=== PATIENT | male | born 1955 | race Caucasian/White ===

== ENCOUNTER 2023-01-12 10:03 | Outpatient (CLI) | payer MEDICARE, SELFPAY ==
--- NOTE | ~2023-01-12 | US_ITS ---
EXAMINATION: US venous doppler [facility] DATE: 01/12/2023 10:38 INDICATION: Left lower limb swelling. TECHNIQUE: Grayscale ultrasound images without and with compression and Doppler ultrasound images of the left lower extremity veins were obtained. COMPARISON: None. FINDINGS: The visualized portions of left common femoral vein, profunda (deep) femoral vein, femoral vein, popl iteal vein, peroneal veins, posterior tibial veins, and greater saphenous vein outflow are patent. IMPRESSION: 1. No deep venous thrombosis. Reviewed, dictated and finalized at location A.
== END 2023-01-12 10:04 | disposition home or self-care (01) ==
PROVIDERS: PCP Nurse Practitioner; Visit Provider Nurse Practitioner
DX: R22.42 Localized swelling, mass and lump, left lower limb (principal)
CPT/HCPCS: 93971

== ENCOUNTER 2025-02-05 01:31 | Day surgery (SDC) | payer MEDICARE, SELFPAY ==
--- OUTSIDE RECORDS SUMMARY | 2020-04-30 12:47 | XMS_ITS | Continuity of Care Document ---
Author Organization [facility] Address [address] [place] [address] Phone Care Team Providers Care Surgical Assist Name Role Phone Misty Evans MD Unavailable Unavailable Allergies, Adverse Reactions, Alerts Substance Reaction Status Criticality No Known Allergies Active No Inform ation Medications Medication Instructions Dosage Effective Dates (start - stop) Status Comments clindamycin HCl 300 mg capsule take 1 capsule by oral route every 8 hours 300 MG - Active JANUVIA (unknown strength) Not Available - Active Procedures Procedure Date OFFICE/OUTPATIENT VISIT, EST CELESTONE (BETAMETHASONE) INJECT/ ASP INTERMED JOINT/B URSA: AC, WRIST,ELBOW,ANKLE W/OUT ULTRASOUND GUIDE OFFICE/OUTPATIENT VISIT, NEW Advance Directives Directive Yes / No Effective Date File Name No Information Encounters Encounter Description Practice Location Reason(s) For Visit Diagnoses Date Provider Providers Copied on Encounter [facility], [address] [place] [address], [address], [place] tel:[phone] [facility] No Information Nathan Jay. [address], [place], [id number], [place]. tel:[phone] OFFICE/OUTPAT IENT VISIT, EST [facility], [address] [place], [address], [place] tel:[phone] [facility] right elbow pain (chief complaint) Olecranon bursitis, right elbow Cristobal Merino. [address], [place], [id number], [place]. tel:[phone] Referring Provider: Esther Percy [facility] [address], [place], [address]. tel:[phone] OFFICE/OUTPAT IENT VISIT, [facility], [address] [place], [address], [place] tel:[phone] [facility] right elbow pain (chief complaint) Abscess of right olecranon bursa Canton Wilber. [address], [place], [id number], [place]. tel:[phone] Referring Provider: Esther [facility] [address], [place], [address]. tel:[phone] Family History Family Member Type Diagnosis Age At Onset No Information Payers Payer name Insurance type Covered libertarian ID Authormarka radha(s) R [facility] CI [id number] Social History Type Description Quantity Date Captured Comments Alcohol Use Details Unknown Caffeine Use Details Unknown Tobacco Use Status No Information Smoking Status No Information Sex Male Chief Complaint And Reason For Visit No Information Reason For Referral Reason For Referral No Information History Of Present Illness Encounter Date Complaint History Of Prese nt Illness right elbow pain Josr Butler is a 64 year old male. He presents with pain on the right side. The problem is improving. He rates his current pain as 0/10. right elbow pain Josr Butler is a 64 year old male. He presents with pain on the right side. He states that the symptoms have been acute non-traumatic and began 1 week ago. The symptoms occur constantly. He rates his current pain as 6/10. The symptoms are aggravated by daily activities. In addition to right elbow pain the patient is also experiencing nocturnal pain and swelling. Functional Status Date Functional Assessmen t No Information Instructions Date Instruction Additional Infor mation No Information Assessments Type Assessment Date No Information Patient Care Teams Name Effective Dates (start - stop) Status Members No Information
[2025-02-01 12:54] VITALS: BMI 33.7
--- OUTSIDE RECORDS SUMMARY | 2025-02-05 01:35 | XMS_ITS | Encounter Summary ---
Author Organization [facility] Address [address] [place] [address] Care Team Providers Care Movable Bulkhead Installer Name Role Phone Unavailable Primary Care Provider Unavailabl e Encounter Details Date Type Department Care Team (Late st Contact Info) Description 11/13/2022 Lab Requisition [facility] - DermPath Lab [address] [place] [id number] Luisa Sotelo PA-C [address] [place] [phone] Dermatitis, unspecified Social History Tobacco Use Types Packs/Day Years Used Date Smoking Tobacco: Never Assessed Sex and Gender Information Value Date Recorded Sex Assigned at Not on file Legal Sex Male 4:15 PM CDT Gender Identity Not on file Sexual Orientation Not on file documented as of this encounter Plan of Treatment Not on file documented as of this encounter Procedures Procedure Name Priority Date/Time Associated Diagnosis Comments DERMATOPATHOLOGY Routine 11/13/2022 12:0 0 AM CDT Dermatitis, unspecified [ICD-10-CM] documented in this encounter Results * DERMATOPATHOLOGY (11/13/2022 12:00 AM CDT) Case Report Dermatopathology Report Case: [id number] Authorizing Provider: Luisa Soetlo, Collected: 11/13/2022 12:00 AM TAYLOR Ordering Location: [facility] DermPath Lab Received: 11/17/2022 12:33 PM Pathologist: Ludmila Lovelace MD Specimen: Skin, right forearm 10:15 AM CDT DERMATOPATHOLOGY LABORATORY Final Diagnosis Specimen A. SKIN, right forearm: BENIGN VERRUCOUS KERATOSIS (L82.1) 10:15 AM CDT DERMATOPATHOLOGY LABORATORY at 1015 CDT Clinical History Prurigo Nodularis vs. SKs 10:15 AM T DERMATOPATHOLOGY LABORATORY Gross Description Specimen A: Received is one formalin filled container labeled with the patient's name and designated right forearm. The specimen consists of a shave biopsy measuring 39w11l4 mm. Jar 0. 10:15 AM T DERMATOPATHOLOGY LABORATORY Microscopic Description Specimen A. SKIN, right forearm: Sections show hyperkeratosis, papillomatosis, hypergranulosis, and acanthosis. These histological findings can be seen in a verruca vulgaris or a seborrheic keratosis. 3 10:15 AM T DERMATOPATHOLOGY LABORATORY Disclaimer An external and internal positive and negative controls are appropriate for the histochemical, immunohistochemical and immunofluorescence stain(s) in this case (if any), except where stated explicitly. The performance characteristics of the stain(s) cited in this report were developed and its performance characteristic determined by the Dermatopathology Laboratory at [facility], directed by Dr. Maurizio Paredes. These tests need not be, and therefore are not, approved by the [place] Food and Drug Administration. The tests are used for clinical purposes. Billing Codes Specimen Charges Stain Charges 12627 1 3 10:15 AM CDT DERMATOPATHOLOGY LABORATORY Embedded Images 10:15 AM T DERMATOPATHOLOGY LABORATORY Pathology/Cytolog y TISSUE SPECIMEN FROM SKIN / Unknown 11/13/2022 11/17/2022 12:33 PM CDT us Luisa Sotelo PA-C LAB - PATHOLOGY/CYTO LOGY ORDERABLES Final Result DERMATOPATHOLOGY LABORATORY [facility] - Department of Dermatology [address], [address] [phone] documented in this encounter Visit Diagnoses Diagnosis Dermatitis, unspecified documented in this encounter
--- OUTSIDE RECORDS SUMMARY | 2025-02-05 01:35 | XMS_ITS | Encounter Summary ---
Author Organization [facility] Address [facility] [place] [address] Care Team Providers Care Stripper And Printer Name Role Phone Kamilla Burch NP Primary Care Provider [phone] Ena Royal RN Unavailable [phone] Encounter Details Date Type Department Care Team (Late st Contact Info) Description 09/02/2022 TextHub Message Enc [facility] - [facility] [address] [place] [address] [facility] Provider Colorectal Cancer Screening and Diabetic Eye Exam Social History Tobacco Use Types Packs/Day Years Used Date Smoking Tobacco: Some Days Cigars Passive Smoke Exposure: Never Smokeless Tobacco: Never Alcohol Use Standard Drinks/Week Comments Yes 0 (1 standard drink = 0.6 oz pur e alcohol) socially Humiliation, Afraid, Rape, and Kick questionnair e Answer Date Recorded Within the last year, have y ou been afraid of your partner or ex-partner? No 08/31/2022 Within the last year, have y ou been humiliated or emotionally abused in other ways by your partner or ex-partner? No Within the last year, have y ou been kicked, hit, slapped, or otherwise physically hurt by your partner or ex-partner? No 08/31/2022 Within the last year, have y ou been raped or forced to have any kind of sexual activity by your partner or ex-partner? No 08/31/2022 Overall Financial Resource Strain (CARDIA) Answe r Date Recorded How hard is it for you to pa y for the very basics like food, housing, medical care, and heating? Not hard at all 08/31/2022 PHQ-2 Answer Date Recorded Patient Health Questionnaire-2 Score 0 08/19/2022 Hunger Vital Sign Answer Date Recorded Within the past 12 months, y ou worried that your food would run out before you got the money to buy more. Never true 09/01/19 23 Within the past 12 months, t he food you bought just didn't last and you didn't have money to get more. Never true 08/31/2022 PRAPARE - Transportation Answer Date Re corded In the past 12 months, has l ack of transportation kept you from medical appointments or from getting medications? No 08/09 In the past 12 months, has l ack of transportation kept you from meetings, work, or from getting things needed for daily living? No 08/31/2022 Housing Stability Vital Sign Answer Mike e Recorded In the last 12 months, was t here a time when you were not able to pay the mortgage or rent on time? No 08/31/2022 In the last 12 months, how many places have you lived? 2 08/31/2022 In the last 12 months, was t here a time when you did not have a steady place to sleep or slept in a fci (including now)? No 08/31/2022 Sex and Gender Information Value Date Recorded Sex Assigned at Male 10/09/2022 10:17 AM CDT Legal Sex Male 1:32 PM CDT Gender Identity Not on file Sexual Orientation Not on file COVID-19 Exposure Response Date Recorded In the last 10 days, have yo u been in contact with someone who was confirmed or suspected to have Coronavirus/COVID-19? No / Unsure 08/31/2022 5:09 AM CDT documented as of this encounter Functional Status * Are you deaf or do you have serious difficulty hearing Answer Date of Assessment Author Status No 08/31/2022 5:14 PM CDT Luisa Ramachandran RN Active * Are you blind or do you have serious difficulty seeing, even when wearing glasses? Answer Date of Assessment Author Status No 08/31/2022 5:14 PM ANGELEST Luisa Ramachandran RN Active * Do you have serious difficulty walking or climbing stairs? Answer Date of Assessment Author Status No 08/31/2022 5:14 PM ANGELEST Luisa Ramachandran RN Active * Do you have difficulty dressing or bathing? Answer Date of Assessment Author Status No 08/31/2022 5:14 PM CDT Luisa Ramachandran RN Active * Because of a physical, mental, or emotional condition, do you have difficulty doing errands alone such as visiting a doctor's office or shopping? Answer Date of Assessment Author Status No 08/31/2022 5:14 PM ANGELEST Luisa Ramachandran RN Active documented as of this encounter Mental Status * Because of a physical, mental, or emotional condition, do you have serious difficulty concentrating, remembering, or making decisions? Answer Entry Date Author Status No 08/31/2022 5:14 PM ANGELEST Luisa Ramachandran RN Active documented in this encounter Plan of Treatment Upcoming Encounters Date Type Department Care Team (Late st Contact Info) Description 04/13/2025 9:20 AM INVESTIGATOR NARCOTICS Office Visit [facility] Family Medicine - [place] [address] [facility] [address] [place] [address] Kamilla Burch NP [address] [place] [address] 04/20/2025 9:30 AM INVESTIGATOR NARCOTICS Office Visit [facility], [address] [place], [place] [address] Braden Mccauley MD Three [facility]. [address] [place] [address] 10/10/2025 9:00 AM CDT Appointment [facility] [address] [facility] [place] [address] Ghanshyam Rodriguez MD Three [facility]. [address] [place], [place] [address] 10/17/2025 10:15 AM CDT Appointment [place] [address] [address] Ghanshyam Rodriguez MD Three [facility]. [address] [place], [place] [address] 10/25/2025 1:00 PM CDT Office [facility] [address] [place], [place] [address] Ghanshyam Rodriguez MD Three [facility]. [address] [place], [place] [address] documented as of this encounter Goals Goal Patient Goal Type Associated Problems Recent Progress Patient-Stated? Author Patient will return to prior living situation and remain independent in ADLs upon discharge from hospital Lifestyle On track( 023 11:22 AM CDT) No Jazmyne Albarran, RN Establish Plan for Symptom Monitoring Lifestyle On track( 023 11:22 AM CDT) No Ena Royal, RN Note: 08/21/22: Moving forward, please see body of note for patient status and progress towards the goal. documented as of this encounter Visit Diagnoses Not on filedocumented in this encounter Additional Health Concerns Infection Onset Date Last Indicated Resolved Time COVID-19 Rule Out 02/12/2023 02/12/2023 02/12/2023 8:08 AM CDT COVID-19 Rule Out 04/26/2024 04/26/2024 04/26/2024 9:15 AM INVESTIGATOR NARCOTICS documented as of this encounter Care Teams Stripper And Printer Relationship Specialty Start Date End Date Kamilla Burch NP [address] [place] [address] PCP - General NURSE PRACTITIONER 12/06/19 Ena Royal, RN [address] [place] [address] Dry Cleaner (Ambulatory) REGISTERED NURSE 08/20/22 documented as of this encounter
--- OUTSIDE RECORDS SUMMARY | 2025-02-05 01:35 | XMS_ITS | Encounter Summary ---
Author Organization [facility] Address [facility] [place] [address] Care Team Providers Care Manager Event Name Role Phone Kamilla Burch NP Primary Care Provider [phone] Ena Royal RN Unavailable [phone] Encounter Details Date Type Department Care Team (Late st Contact Info) Description 08/24/2022 Easy Social Shopt Message Enc [facility] Medical Group Family Medicine [facility] [address] [facility] [address] [place], [place] [id number] Kamilla Burch NP [address] [place] [address] Open Heart surgery Wednesday the Social History Tobacco Use Types Packs/Day Years Used Date Smoking Tobacco: Some Days Cigars Passive Smoke Exposure: Never Smokeless Tobacco: Never Alcohol Use Standard Drinks/Week Comments Yes 0 (1 standard drink = 0.6 oz pur e alcohol) socially Humiliation, Afraid, Rape, and Kick questionnair e Answer Date Recorded Within the last year, have y ou been afraid of your partner or ex-partner? No 08/19/2022 Within the last year, have y ou been humiliated or emotionally abused in other ways by your partner or ex-partner? No Within the last year, have y ou been kicked, hit, slapped, or otherwise physically hurt by your partner or ex-partner? No 08/19/2022 Within the last year, have y ou been raped or forced to have any kind of sexual activity by your partner or ex-partner? No 08/19/2022 Overall Financial Resource Strain (CARDIA) Answe r Date Recorded How hard is it for you to pa y for the very basics like food, housing, medical care, and heating? Not hard at all 08/19/2022 PHQ-2 Answer Date Recorded Patient Health Questionnaire-2 Score 0 08/19/2022 Hunger Vital Sign Answer Date Recorded Within the past 12 months, y ou worried that your food would run out before you got the money to buy more. Never true 08/20/19 23 Within the past 12 months, t he food you bought just didn't last and you didn't have money to get more. Never true 08/19/2022 PRAPARE - Transportation Answer Date Re corded In the past 12 months, has l ack of transportation kept you from medical appointments or from getting medications? No 08/08 In the past 12 months, has l ack of transportation kept you from meetings, work, or from getting things needed for daily living? No 08/19/2022 Housing Stability Vital Sign Answer Mike e Recorded In the last 12 months, was t here a time when you were not able to pay the mortgage or rent on time? No 08/19/2022 In the last 12 months, how many places have you lived? 2 08/19/2022 In the last 12 months, was t here a time when you did not have a steady place to sleep or slept in a senior care (including now)? No 08/19/2022 Sex and Gender Information Value Date Recorded Sex Assigned at Male 10/09/2022 10:17 AM CDT Legal Sex Male 1:32 PM CDT Gender Identity Not on file Sexual Orientation Not on file COVID-19 Exposure Response Date Recorded In the last 10 days, have yo u been in contact with someone who was confirmed or suspected to have Coronavirus/COVID-19? No / Unsure 08/19/2022 8:49 AM CDT documented as of this encounter Functional Status * Are you deaf or do you have serious difficulty hearing Answer Date of Assessment Author Status No 08/19/2022 5:58 PM CDT Sadaf Mclean R N Active * Are you blind or do you have serious difficulty seeing, even when wearing glasses? Answer Date of Assessment Author Status No 08/19/2022 5:58 PM CDT Sadaf Mclean R N Active * Do you have serious difficulty walking or climbing stairs? Answer Date of Assessment Author Status No 08/19/2022 5:58 PM CDT Sadaf Mclean R N Active * Do you have difficulty dressing or bathing? Answer Date of Assessment Author Status No 08/19/2022 5:58 PM CDT Sadaf Mclean R N Active * Because of a physical, mental, or emotional condition, do you have difficulty doing errands alone such as visiting a doctor's office or shopping? Answer Date of Assessment Author Status No 08/19/2022 5:58 PM CDT Sadaf Mclean R N Active documented as of this encounter Mental Status * Because of a physical, mental, or emotional condition, do you have serious difficulty concentrating, remembering, or making decisions? Answer Entry Date Author Status No 08/19/2022 5:58 PM CDT Sadaf Mclean R N Active documented in this encounter Plan of Treatment Upcoming Encounters Date Type Department Care Team (Late st Contact Info) Description 04/13/2025 9:20 AM APPLIER Office Visit [facility] Medical Group Family Medicine - [place] [address] [facility] [address] [place] [address] Kamilla Burch NP [address] [place] [address] 04/20/2025 9:30 AM APPLIER Office Visit [facility] [place], [place] [id number] Braden Mccauley MD [facility]. [address] [place], [place] [id number] 10/10/2025 9:00 AM CDT Appointment [place] [address] [facility] [place] [address] Ghanshyam Rodriguez MD [facility] [address] [place], [place] [address] 10/17/2025 10:15 AM CDT Appointment [place] [address] [facility] [place] [address] Ghanshyam Rodriguez MD [facility] [address] [place] [address] 10/25/2025 1:00 PM CDT Office Visit [facility] [address] [facility] [address], [address] [place], [place] [address] Ghanshyam Rodriguez MD Three [facility]. [address] [place] [address] documented as of this encounter Goals Goal Patient Goal Type Associated Problems Recent Progress Patient-Stated? Author Patient will return to prior living situation and remain independent in ADLs upon discharge from hospital Lifestyle On track( 023 11:22 AM CDT) No Jazmyne Albarran, RN Establish Plan for Symptom Monitoring Lifestyle On track( 023 11:22 AM CDT) No Ena Royal RN Note: 08/21/22: Moving forward, please see body of note for patient status and progress towards the goal. documented as of this encounter Visit Diagnoses Not on filedocumented in this encounter Additional Health Concerns Infection Onset Date Last Indicated Resolved Time COVID-19 Rule Out 02/12/2023 02/12/2023 02/12/2023 8:08 AM CDT COVID-19 Rule Out 04/26/2024 04/26/2024 04/26/2024 9:15 AM APPLIER documented as of this encounter Care Teams Manager Event Relationship Specialty Start Date End Date Kamilla Burch NP [address] [place] [address] PCP - General NURSE PRACTITIONER 12/06/19 Ena Royal, RN [address] [place], [place] [address] Rn Wound (Ambulatory) REGISTERED NURSE 08/20/22 documented as of this encounter
--- OUTSIDE RECORDS SUMMARY | 2025-02-05 01:35 | XMS_ITS | Encounter Summary ---
Author Organization [facility] Address [facility] [place] [address] Care Team Providers Care Trimming Assembler Name Role Phone Kamilla Burch NP Primary Care Provider [phone] Ena Royal RN Unavailable [phone] Encounter Details Date Type Department Care Team (Late st Contact Info) Description 04/08/2022 Larger Than Life Prints Message Enc [facility] Medical [facility] Family Medicine [facility] [address] [facility] [place], [place] [id number] Kamilla Burch NP [address] [place] [address] follow up on blood sugars Social History Tobacco Use Types Packs/Day Years Used Date Smoking Tobacco: Never Passive Smoke Exposure: Never Smokeless Tobacco: Never Alcohol Use Standard Drinks/Week Comments Yes 0 (1 standard drink = 0.6 oz pur e alcohol) socially PHQ-2 Answer Date Recorded PHQ-2 Score - If the patient scores above 3, please move on to questions 3-9 0 03/19/2022 Sex and Gender Information Value Date Recorded Sex Assigned at Male 10/09/2022 10:17 AM CDT Legal Sex Male 1:32 PM CDT Gender Identity Not on file Sexual Orientation Not on file COVID-19 Exposure Response Date Recorded In the last 10 days, have yo u been in contact with someone who was confirmed or suspected to have Coronavirus/COVID-19? No / Unsure 04/01/2022 9:54 AM COMMERCIAL DESIGNER documented as of this encounter Plan of Treatment Upcoming Encounters Date Type Department Care Team (Late st Contact Info) Description 04/13/2025 9:20 AM COMMERCIAL DESIGNER Office Visit [facility] Medical [facility] Family Medicine - [place] [address] [facility] [address] [place] [address] Kamilla Burch NP [address] [place] [address] 04/20/2025 9:30 AM COMMERCIAL DESIGNER Office Visit [facility], [facility] [address] [place] [address] Braden Mccauley MD Three [facility]. [facility] [address] [place] [address] 10/10/2025 9:00 AM CDT Appointment [facility] [place] [address] [place] [place] [address] Ghanshyam Rodriguez MD Three [facility]. [facility] [address] [place] [address] 10/17/2025 10:15 AM CDT [facility]ment [facility] [place] [address] [place] [address] Ghanshyam Rodriguez MD Three [facility]. [facility] [address] [place] [address] 10/25/2025 1:00 PM CDT [facility], [place] [address] [place] [address] Ghanshyam Rodriguez MD Three [facility]. [place] [address] [place] [address] documented as of this encounter Visit Diagnoses Not on filedocumented in this encounter Additional Health Concerns Infection Onset Date Last Indicated Resolved Time COVID-19 Rule Out 02/12/2023 02/12/2023 02/12/2023 8:08 AM CDT COVID-19 Rule Out 04/26/2024 04/26/2024 04/26/2024 9:15 AM COMMERCIAL DESIGNER documented as of this encounter Care Teams Trimming Assembler Relationship Specialty Start Date End Date Kamilla Burch NP [address] [place] [address] PCP - General NURSE PRACTITIONER 12/06/19 Ena Royal, RN [address] [place] [address] Workforce Specialist (Ambulatory) REGISTERED NURSE 08/20/22 documented as of this encounter
--- OUTSIDE RECORDS SUMMARY | 2025-02-05 01:35 | XMS_ITS | Encounter Summary ---
Author Organization [facility] Address [facility] [place] [address] Care Team Providers Care Balancing Machine Set Up Worker Name Role Phone Kamilla Burch NP Primary Care Provider [phone] Ena Royal RN Unavailable [phone] Encounter Details Date Type Department Care Team (Late st Contact Info) Description 04/16/2022 Complex Mediat Message Enc [facility] Medical [facility] Family Medicine [facility] [address] [place], [place] [id number] Kamilla Burch NP [address] [place] [address] Follow up on blood sugars Social History Tobacco [...] Coronavirus/COVID-19? No / Unsure 04/01/2022 9:54 AM SCHOOL EXAMINER documented as of this encounter Plan of Treatment Upcoming Encounters Date Type Department Care Team (Late st Contact Info) Description 04/13/2025 9:20 AM SCHOOL EXAMINER Office Visit [facility] Family Medicine - [place] [address] [facility] [address] [facility] [address] [place] [address] Kamilla Burch NP [address] [place] [address] 04/20/2025 9:30 AM SCHOOL EXAMINER Office Visit [facility] THREE [facility], [facility] [address] [place] [address] Braden Mccauley MD Three [place]. [facility] [address] [place] [address] 10/10/2025 9:00 AM CDT Appointment [facility] [place] [address] Ghanshyam Rodriguez MD Three [place]. [facility] [address] [place] [address] 10/17/2025 10:15 AM CDT [place] [place] [address] Ghanshyam Rodriguez MD Three [place]. [facility] [address] [place] [address] 10/25/2025 1:00 PM CDT [facility], [place] [address] [place] [address] Ghanshyam Rodriguez MD Three [place]. [address] [address] [place] [address] documented as of this encounter Visit Diagnoses Not on filedocumented in this encounter Additional Health Concerns Infection Onset Date Last Indicated Resolved Time COVID-19 Rule Out 02/12/2023 02/12/2023 02/12/2023 8:08 AM CDT COVID-19 Rule Out 04/26/2024 04/26/2024 04/26/2024 9:15 AM SCHOOL EXAMINER documented as of this encounter Care Teams Balancing Machine Set Up Worker Relationship Specialty Start Date End Date Kamilla Burch NP [address] [place] [address] PCP - General NURSE PRACTITIONER 12/06/19 Ena Royal, RN [address] [place] [address] Facility Security Officer (Ambulatory) REGISTERED NURSE 08/20/22 documented as of this encounter
--- OUTSIDE RECORDS SUMMARY | 2025-02-05 01:35 | XMS_ITS | Encounter Summary ---
Author Organization [facility] Address [facility] [place] [address] Care Team Providers Care Manager Surgical Name Role Phone Kamilla Burch ULTRASONOGRAPHER Primary Care Provider [phone] Encounter Details Date Type Department Care Team (Late st Contact Info) Description 06/23/2023 MyCPetsyt Message Enc [facility] Medical Group Family Medicine - [place] [address] [facility] [address] [place] [address] Kamilla Burch, ULTRASONOGRAPHER [address] [place] [address] Colonoscopy Social History Tobacco Use Types Packs/Day Years Used Date Smoking Tobacco: Former Cigars Passive Smoke Exposure: Never Smokeless Tobacco: Never Alcohol Use Standard Drinks/Week Comments Not Currently 0 (1 standard drink = 0.6 oz [...] place to sleep or slept in a penitentiary (including now)? No 08/31/2022 Sex and Gender Information Value Date Recorded Sex Assigned at Male 10/09/2022 10:17 AM CDT Legal Sex Male 1:32 PM CDT Gender Identity Not on file Sexual Orientation Not on file documented as of this encounter Functional Status [...] PM CDT Luisa Ramachandran RN Active * Do you have serious difficulty walking or climbing stairs? Answer Date of Assessment Author Status No 08/31/2022 5:14 PM CDT Luisa Ramachandran RN Active * Do you [...] 5:14 PM CDT Luisa Ramachandran RN Active documented as of this encounter Mental Status * Because of a physical, mental, or emotional condition, do you have serious difficulty concentrating, remembering, or making decisions? Answer Entry Date Author Status No 08/31/2022 5:14 PM ANGELEST Luisa Ramachandran RN Active documented in this encounter Plan of Treatment Upcoming Encounters Date Type Department Care Team (Late st [facility] Info) Description 04/13/2025 9:20 AM INCINERATOR PLANT LABORER Office Visit [facility] Medical [facility] Family Medicine - [place] [address] [facility] [address] [place] [address] Kamilla Burch NP [address] [place] [address] 04/20/2025 9:30 AM INCINERATOR PLANT LABORER Office Visit [facility] THREE [facility], [place] [address] [place] [address] Braden Mccauley MD Three [facility]. [place] [address] [place] [address] 10/10/2025 9:00 AM CDT Appointment [facility] [address] [facility] [place] [address] Ghanshyam Rodriguez MD Three [facility]. [place] [address] [place] [address] 10/17/2025 10:15 AM CDT App[facility]ment [facility] [address] [facility] [address] Ghanshyam Rodriguez MD Three [facility]. [address] [address] [place], [place] [id number] 10/25/2025 1:00 PM CDT [facility] [address] [address] [place], [place] [id number] Ghanshyam Rodriguez MD Three [facility]. [place] [address] [place], [place] [id number] documented as of this encounter Goals Goal Patient Goal Type Associated Problems Recent Progress Patient-Stated? Author Patient will return to prior living situation and remain independent in ADLs upon discharge from hospital Lifestyle On track( 11:22 AM CDT) No Jazmyne Albarran RN Establish Plan for Symptom Monitoring Lifestyle On track( 11:22 AM CDT) No Ena Royal RN Note: 08/21/22: Moving forward, please see body of note for patient status and progress towards the goal. Establish Regular Follow-Ups with PCP Lifestyle On track( 023 11:22 AM CDT) No Ena Royal RN Note: 09/07/22: PCP appt on 09/14/22 and cardiology appt on 10/01/22 and patient is aware of these appts. Moving forward, please see body of note for patient status and progress towards the goal. documented as of this encounter Visit Diagnoses Not on filedocumented in this encounter Additional Health Concerns Infection Onset Date Last Indicated Resolved Time COVID-19 Rule Out 04/26/2024 04/26/2024 04/26/2024 9:15 AM INCINERATOR PLANT LABORER documented as of this encounter Care Teams Manager Surgical Relationship Specialty Start Date End Date Kamilla Burch NP [address] [place] [address] PCP - General NURSE PRACTITIONER 12/06/19 documented as of this encounter
--- OUTSIDE RECORDS SUMMARY | 2025-02-05 01:35 | XMS_ITS | Clinical Summary ---
Author Organization [facility] Address [address] [place] [address] Care Team Providers Care Fine Sander Name Role Phone Kamilla Burch NP Primary Care Provider [phone] Allergies No known active allergies Medications Turmeric (QC TUMERIC COMPLEX OR) Take 1 capsule by mouth daily. Active Cholecalciferol (VITAMIN D) 50 MCG (2000 UT) Tab Take 1 tablet (50 mcg total) by mouth daily. Active VITAMIN E OR Take 1 capsule by mouth daily. Active Ascorbic Acid (VITAMIN C) 500 MG Cap Take 500 mg by mouth daily. 2 chewables daily Active vitamin B-12 (CYANOCOBALAMIN) (CYANOCOBALAMIN) 1000 mcg tablet Take 1 tablet (1,000 mcg total) by mouth daily. Active zinc gluconate 50 MG Tab Take 1 tablet (50 mg total) by mouth daily. Taking 30 mg daily Active Apoaequorin (PREVAGEN) 10 MG Cap Take 1 tablet by mouth daily. Active Ubiquinol 100 MG Cap Take 2 tablets by mouth daily. Active NON FORMULARY Take 3 capsules by mouth daily. Fruits whole produce fruits capsule Active NON FORMULARY Take 3 capsules by mouth daily. Simply veggies Active NON FORMULARY Take 1 capsule by mouth daily. Pitts Revive Active Multiple Vitamins-Mineral s (PRESERVISION AREDS 2 OR) Take 1 tablet by mouth daily. Active Collagen-Vitamin C (ULTRA COLLAGEN + C) 1000-10 MG Tab Take 2 tablets by mouth daily. Active biotin 300 MCG Tab Take 1 tablet (300 mcg total) by mouth daily. 5000 mcg daily Active Glucose Blood (ONETOUCH VERIO) test stripIndications :Type 2 diabetes mellitus with other specified complication, with long-term current use of insulin ([facility] [place]),Insulin dependent type 2 diabetes mellitus ([facility] [place]/[facility]) TEST BLOOD SUGARS 3 TIMES A DAY 300 strip 3 2022 Active aspirin EC (ASPIRIN LOW DOSE) 81 MG tablet Take 1 tablet (81 mg total) by mouth daily. 90 tablet 2 2023 Active Continuous Glucose Logistics Analytics Manager (DEXCOM G7 PROJECT OFFICER) DeviceIndication s:Type 2 diabetes mellitus with other specified complication, with long-term current use of insulin ([facility] [place]) USE TO CONTINUOUSLY MONITOR GLUCOSE 1 each 2023 Active ezetimibe (ZETIA) 10 MG tablet TAKE 1 TABLET BY MOUTH EVERY DAY 90 tablet 3 2024 Active metoprolol succinate ER (TOPROL-XL) 100 MG 24 hr tabletIndication s:Hypertension, unspecified type Take 0.5 tablets (50 mg total) by mouth daily. New dose 09/01/2024 90 tablet 1 2024 Active fluorouracil (EFUDEX) 5 % cream PLEASE SEE ATTACHED FOR DETAILED DIRECTIONS 2024 Active Continuous Glucose Sensor (DEXCOM G7 SENSOR) MiscIndications: Type 2 diabetes mellitus with other specified complication, with long-term current use of insulin ([facility] [place]) USE TO CONTINUOUSLY MONITOR GLUCOSE 3 each 3 2024 Active Insulin Pen Needle (BD PEN NEEDLE PAOLA 2ND GEN) 32G X 4 MM MiscIndications: Type 2 diabetes mellitus with other specified complication, with long-term current use of insulin ([facility] [place]),Insulin dependent type 2 diabetes mellitus ([facility] [place]) USES 4 NEEDLES PER DAY 400 each 1 2024 Active insulin glargine (BASAGLAR KWIKPEN) 100 UNIT/ML injection (PEN)Indications :Type 2 diabetes mellitus with other specified complication, with long-term current use of insulin ([facility] [place]) INJECT 50 UNITS INTO THE SKIN EVERY MORNING. 15 mL 5 2024 Active Additional Information Patient taking differently: 36 UnitsSubcutaneous Every morning,20 at noon and 20 at bedtime, Reported on 01/10/2025 rosuvastatin (CRESTOR) 40 MG tabletIndication s:Mixed hyperlipidemia Take 1 tablet (40 mg total) by mouth nightly at bedtime. at bedtime 90 tablet 1 2024 Active lisinopril (PRINIVIL) 10 MG tabletIndication s:Primary hypertension Take 1 tablet (10 mg total) by mouth daily. 90 tablet 1 2024 Active RYBELSUS 14 MG tabletIndication s:Type 2 diabetes mellitus with other specified complication, with long-term current use of insulin ([facility]),History of heart bypass surgery,Obesity (BMI 30-39.9) TAKE 1 TABLET BY MOUTH EVERY DAY FOR DIABETES 30 tablet 5 2024 Active insulin aspart (NOVOLOG FLEXPEN) 100 UNIT/ML injection (PEN)Indications :Type 2 diabetes mellitus with other specified complication, with long-term current use of insulin ([facility]) INJECT 20 UNITS INTO THE SKIN 3 (THREE) TIMES DAILY BEFORE MEALS 15 mL 2 2024 Active insulin aspart (NOVOLOG FLEXPEN) 100 UNIT/ML injection (PEN)Indications :Type 2 diabetes mellitus with other specified complication, with long-term current use of insulin ([facility] HHS/HCC) Inject 22 Units into the skin 3 (three) times daily before meals. 15 mL 2 01/31 Discontinued Active Problems Problem Noted Date Diagnosed Date Abdominal aortic atherosclerosis 10/05/2024 Overview (01/10/2025): Following with Dr Hearn. Last seen 10/05/24. Note reviewed. Pt with hx of coronary artery disease, hyperlipidemia, lumbar disc disease who presented with left lower extremity discomfort and erectile dysfunction. The patient reports numbness and tingling along the left thigh and medial calf. He reports occasional tenderness at the site. Per Dr. Hearn with patients history which is concerning for atheroembolization from the aorta. The patient states his erectile dysfunction occurred following catheterization and coronary artery bypass surgery Recommendations and Plan: The patient will need to be scheduled for CTA of the abdomen and pelvis. CTA completed 10/15/[address] angiography abdomen pelvis demonstrates an anterior saccular infrarenal abdominal aortic aneurysm measuring up to 3.6 cm. The anterior abdominal aortic aneurysm sac is thrombosed. The bilateral common, internal and external iliac arteries are patent without high-grade stenosis or occlusion. 2. No acute abnormality is seen within the abdomen or pelvis. 3. There is a hooklike configuration of the celiac artery with post stenotic dilation, which can be seen with median arcuate ligament compression. 4. Enlarged bilateral inguinal lymph nodes measuring up to 10 mm short axis, likely reactive. Clinical follow-up is recommended Assessment & Plan (01/10/2025 8:28 AM CDT): Had follow up with Dr. Hearn on 11/01/24 and reported the pt's aneurysm remains small and slightly greater than 3 cm. The patient had no significant stenosis of the bilateral common, external and internal iliac arteries. Recommended repeat screening in 1 year. No change in meds. Obesity (BMI 30-39.9) 01/11/2024 Assessment & Plan (01/10/2025 8:52 AM CDT): Encourage diet and lifestyle changes to assist with weight loss. Assessment & Plan (01/11/2024 9:38 PM CDT): Encourage following a healthy well balance diet and staying active. Coronary artery disease invo lving lummi coronary artery of lummi heart without angina pectoris 05/27/2023 Postoperative atrial fibrillation ([facility] HHS/H CC) 05/27/2023 Hx of CABG 09/14/2022 Overview (01/10/2025): Pt has hx of a 4 vessel CABG in August,.Follows with Dr. Mccauley. Denies chest pain, palpitations, shortness of breath, dizziness, lightheadedness or lower extremity edema. Denies any orthopnea or PND. Pt had 3 of his sternal wires removed by Dr. Estevez in August, because they were causing him discomfort. Has been doing well since. Assessment & Plan (01/10/2025 8:50 AM CDT): Continue to follow up with cardio as directed. Continue meds as directed. Assessment & Plan (04/12/2024 9:13 AM TECHNICAL SUPPORT ASSISTANT): Would recommend pt to reach out to Dr. Welsh for further recommendation on this matter. JUANY (obstructive sleep apnea) 09/14/2022 Overview (01/10/2025): On CPAP and tolerating well. Assessment & Plan (01/10/2025 8:52 AM CDT): Resume CPAP compliance. Degeneration of lumbar intervertebral disc 01/20 Insulin dependent type 2 ute betes mellitus ([facility] [place]) 12/08/2019 Overview (01/10/2025): Last A1C 7.8 in July. Denies any polyuria, polydipsia, or polyphagia. Denies neuropathy. Diabetic eye exam is Assessment & Plan (01/10/2025 8:55 AM CDT): Chronic condition with med adjustment. A1C today 7.4. Improved but not at goal Pt will increase Basaglar from 18 units BID to 20 units BID. Will resume Novolog 22 units TID Educated pt to be sure he is changing up his injection sites. Goal for blood sugars to be between 80-130 fasting and 180 or less two hours after eating. Can increase long acting insulin up by 4 units every 4 days if fasting blood sugar is > 180. He is going to work on being more active and continue to watch his diet more closelly Be sure you have a diabetic eye exam yearly. Encourage daily foot checks, avoid walking around barefoot. Goal for A1C to be below 7 Urine Microalbumin- 07/02/23, completed today 01/10/25 On SAYRA and statin Foot exam- 01/11/24 normal Encourage following a low fat, low carb diet, encorperate whole foods such as fresh fruits and vegetables and whole grains into your diet, encourage 5 small meals per day. Avoid sugar-sweetened beverages, added sugars, processed meats, refined grains and oils or other processed foods. Encourage to get at least 150 minutes of moderate aerobic activity or 75 minutes of vigorous Assessment & Plan (07/12/2024 8:30 AM TECHNICAL SUPPORT ASSISTANT): Chronic condition not controlled with med adjustment. A1C today 7.8. Not at goal Pt to try and do Basaglar 50 units just once daily Increase short acting to 16 units TID or can do 18 units if blood sugar is > 180 Educated pt to be sure he is changing up his injection sites. Goal for blood sugars to be between 80-130 fasting and 180 or less two hours after eating. Can increase long acting insulin up by 4 units every 4 days if fasting blood sugar is > 180. He is going to work on being more active and continue to watch his diet more closelly Be sure you have a diabetic eye exam yearly. Encourage daily foot checks, avoid walking around barefoot. Goal for A1C to be below 7 Urine Microalbumin- 07/02/23 On SAYRA and statin Foot exam- 01/11/24 normal Encourage following a low fat, low carb diet, encorperate whole foods such as fresh fruits and vegetables and whole grains into your diet, encourage 5 small meals per day. Avoid sugar-sweetened beverages, added sugars, processed meats, refined grains and oils or other processed foods. Encourage to get at least 150 minutes of moderate aerobic activity or 75 minutes of vigorous Assessment & Plan (04/12/2024 9:04 AM TECHNICAL SUPPORT ASSISTANT): A1C today in office is improved to 7.6 but not at goal Pt to cut his evening insulin down from 14 units to 7 units and increase long acting insulin from 18 units to 20 units at this time. Educated pt to be sure he is changing up his injection sites. Goal for blood sugars to be between 80-130 fasting and 180 or less two hours after eating. Can increase long acting insulin up by 4 units every 4 days if fasting blood sugar is > 180. He is going to work on being more active and continue to watch his diet more closelly Be sure you have a diabetic eye exam yearly. Encourage daily foot checks, avoid walking around barefoot. Goal for A1C to be below 7 Urine Microalbumin- 07/02/23 On SAYRA and statin Foot exam- 01/11/24 normal Encourage following a low fat, low carb diet, encorperate whole foods such as fresh fruits and vegetables and whole grains into your diet, encourage 5 small meals per day. Avoid sugar-sweetened beverages, added sugars, processed meats, refined grains and oils or other processed foods. Encourage to get at least 150 minutes of moderate aerobic activity or 75 minutes of vigorous Assessment & Plan (01/11/2024 9:39 PM CDT): A1C increased to 8.9. Educated pt to be sure he is changing up his injection sites. Goal for blood sugars to be between 80-130 fasting and 180 or less two hours after eating. Can increase long acting insulin up by 4 units every 4 days if fasting blood sugar is > 180. Since pt is taking 20 units currently to increase to 24 units at this time to start. He is going to work on being more active and continue to watch his diet more closelly He hwas able to get his blood sugars down in the 80's to 90's before so he is motivated to do that again. Be sure you have a diabetic eye exam yearly. Encourage daily foot checks, avoid walking around barefoot. Goal for A1C to be below 7 Urine Microalbumin- 07/02/23 On SAYRA and statin Foot exam- 01/11/24 normal Encourage following a low fat, low carb diet, encorperate whole foods such as fresh fruits and vegetables and whole grains into your diet, encourage 5 small meals per day. Avoid sugar-sweetened beverages, added sugars, processed meats, refined grains and oils or other processed foods. Encourage to get at least 150 minutes of moderate aerobic activity or 75 minutes of vigorous Primary hypertension 12/08/2019 Overview (01/10/2025): Chronic condition. Currently well-controlled with lisinopril 10mg daily and Metoprolol ER 100mg daily. Assessment & Plan (01/10/2025 8:53 AM CDT): Chronic condition, controlled. No changes needed at this time. Goal for BP to stay below 140/90. Encourage lifestyle modifications to include healthy eating, decrease salt and caffeine in diet, routine exercise, and weight loss. Hyperlipidemia, mixed 12/08/2019 Overview (01/10/2025): Chronic condition. Taking Rosuvastatin 40 mg at bedtime and Zetia. Diet has been good. Assessment & Plan (01/10/2025 8:51 AM CDT): Chronic condition. Resume medications as directed. Goal for LDL to be below 100 probably 70 or less due to his cardiac history and having type 2 diabetes. Pt will follow up to have his lipid panel done fasting. Encourage following a healthy well balance diet. Limit saturated and trans fats. Encourage to get plenty of lean meats in your diet and grilled fish. Recommend eating at least 2 servings of fruits and vegetables per day. Encourage to limit sugar, processed foods, and large amount of carbohydrates. Resolved Problems Problem Noted Date Diagnosed Date Resolved Date Left foot pain 04/12/2024 01/10/2025 Overview (04/12/2024): He reports having left foot pain. Has a bone on the internal aspect of his left foot that is enlarged and causes him pain with walking. Hx of left ankle complaints and xray of left ankle noted.Findings: No acute osseous abnormality, fracture, dislocation. Extensive hypertrophic ossification throughout the talotibial joint both laterally and medially along the medial malleolus lateral malleolus. Degenerative changes in the midfoot talonavicular. Standing x-ray shows the talus incongruent or collapsing medially. Lateral view shows hypertrophic spurring anterior and posterior calcaneus hypertrophic ossification in the posterior soft space tween the Achilles and talus. Severe degenerative changes talotibial/midfoot. Pt is interested in seeing a tube room cashier. Assessment & Plan (04/12/2024 9:06 AM TECHNICAL SUPPORT ASSISTANT): Referral to podiatry placed. Right flank pain 01/11/2024 01/10/2025 Overview (01/11/2024): Right sided flank pain for a month in a half. Initially thought he had a pulled muscle but denies recent injury has not gotten better. Denies any gross hematuria or troubles urinating. He wonders if there is something going on with his kidney or not. Assessment & Plan (01/11/2024 9:35 PM CDT): Will check a UA and BMP and follow. Atypical chest pain 08/19/2022 08/20/19 Chest pain 08/19/2022 10/12/2022 Olecranon bursitis of left elbow 12/08/2019 03/19/2022 Skin lesion of right arm 12/08/201902/2022 Encounters Date Type Department Care Team Description 02/02/2025 Telephone [facility] [address] [place] [address] Braden Mccauley MD Surgical Clearance 01/18/2025 9:00 AM CDT Allied Health/Nurse Visit [address] [place] [address] Kamilla Burch NP Lab Draw 01/18/2025 Travel 01/10/2025 8:20 AM CDT Office Visit [address] [place] [address] Kamilla Burch NP Diabetes (Patient presents for a follow up on chronic conditions) 01/10/2025 Results Follow-Up [address] [place] [address] Kamilla Burch NP A1C (BACK OFFICE), ALBUMIN/CREATININE RATIO, RANDOM URINE, PROSTATE SPECIFIC ANTIGEN,SCREENING, Additional followed-up results: 4 01/10/2025 Travel 12/04/2024 Telephone [facility], [facility] [address] [place] [address] Braden Mccauley MD Refill Request (LISINOPRIL) 12/04/2024 Orders Only [address] [place] [address] Soraida Law MA 11/14/2024 10:20 AM CDT Office Visit [address] [place] [address] Kamilla Burch NP Ear Problem (Patient says that his inner ear canal is swollen and he couldn't event get his hearing aid in for a little bit. He wonders if he had something sting him and wants to make sure there is nothing in it. ) 11/14/2024 Travel from Last 3 Months Immunizations Immunization Administration Dates Next Due Flucelvax 6 Months+ (Prefilled Syringe) 02/19/20 20 Fluzone High Dose (IIV, trivalent, 0.5mL) 2023 Fluzone High Dose - >Age 65 (Prefilled Syringe) 03/19/2022 Influenza (Generic) 04/05/2019 Pneumococcal (Prevnar 20) 03/19/2022 Td (Decavac) 07/11/2001 Tdap (Generic) 10/08/2018 Family History Medical History Relation Comments Asthma Father Stomach Aneurysm ruptured ( on 07/22/2021 Stroke Father Thyroid Disease Father Dementia Maternal Grandmother Heart Disease Maternal Grandmother Heart Disease Mother Hypertension Mother Stroke Paternal Grandfather Relation Status Comments Father Maternal Grandfather Maternal Grandmother Mother Paternal Grandfather Paternal Grandmother Social History Tobacco Use Types Packs/Day Years Used Date Smoking Tobacco: Former Cigars Passive Smoke Exposure: Never Smokeless Tobacco: Never Tobacco Cessation:Counseling Given: No Comments:Quit 2022 Alcohol Use Standard Drinks/Week Comments Not Currently [...] Date Recorded Patient Health Questionnaire-2 Score 0 07/12/2024 Hunger Vital Sign Answer Date Recorded Within [...] place to sleep or slept in a [place] facility (including now)? No 08/31/2022 Sex and Gender Information Value Date Recorded Sex Assigned at Male 10/09/2022 10:17 AM CDT Legal Sex Male 1:32 PM CDT Gender Identity Not on file Sexual Orientation Not on file Last Filed Vital Signs Vital Sign Reading Time Taken Comments Blood Pressure 132/74 01/10/2025 8:17 AM CDT Pulse 82 01/10/2025 8:17 AM CDT Temperature 36.3 C (97.3 F) 01/10/2025 8:17 AM CDT Respiratory Rate 16 01/10/2025 8:17 AM CDT Oxygen Saturation 95% 01/10/2025 8:17 AM CDT Inhaled Oxygen Concentration - - Weight 127.9 kg (282 lb) 01/10/2025 8:17 AM CDT Height 188 cm (6' 2) 01/10/2025 8:17 AM CDT Body Mass Index 36.21 01/10/2025 8:17 AM CDT Plan of Treatment Upcoming Encounters Date Type Department Care Team (Late st Contact Info) Description 04/13/2025 9:20 AM TECHNICAL SUPPORT ASSISTANT Office Visit [facility] - [place] [address] [facility] [address] [place] [address] Kamilla Burch NP [address] [place] [address] 04/20/2025 9:30 AM TECHNICAL SUPPORT ASSISTANT Office Visit [facility], [place] [address] [place] [address] Braden Mccauley MD [facility]. [place] [address] [place], [place] [address] 10/10/2025 9:00 AM CDT Appointment [facility] [place] [address] Ghanshyam Hearn MD [facility]. [facility] [address] [place], [place] [address] 10/17/2025 10:15 AM CDT Appointment [facility] [address] [facility] [place] [address] Ghanshyam Hearn MD [facility]. [facility] [address] [place], [place] [id number] 10/25/2025 1:00 PM CDT Office Visit [facility] [address], [place] [address] [place], [place] [address] Ghanshyam Hearn MD [facility]. [address] [address] [place], [place] [id number] Health Maintenance Due Date Last Done Comments Colorectal Cancer Screening Colonoscopy (10 Years) 1955 Zoster Vaccines (1 of 2) 2006 RSV Immunization or 60+ Years (1 - Risk 60-74 years 1-dose series) 2016 Annual Medicare Wellness Visit 2021 COVID-19 Vaccine ( - 2023- season) 2025 Diabetes: Retinopathy Eye Exam 04/21/2025 04/21/2024 Hemoglobin A1C 07/10/2025 01/10/2025, 03/0 09/2024, 04/12/2024, Additional history exists Kidney Health Evaluation 01/10/2026 01/10/2025 Lipid Panel 01/18/2026 01/18/2025, 05/3 , 05/28/2023, Additional history exists DTaP, Tdap and Td Vaccines (2 - Td or Tdap) 10/08/2028 10/08/2018, 07/11/2001 Pneumococcal Vaccine: 50+ Years Completed 03/19/2022 Hepatitis C Completed 02/22/2024 PHQ-2 (Physician Solomon) Completed 07/12/2024 AAA SCREENING Completed 10/10/2024, 06/18/2023 Meningococcal B Vaccine Aged Out No l onger eligible based on patient's age to complete this topic Meningococcal Vaccine Aged Out No nikki haley eligible based on patient's age to complete this topic RSV Immunizations Under 20 Months Aged Out No longer eligible based on patient's age to complete this topic Goals Goal Patient Goal Type Associated Problems Recent Progress Patient-Stated? Author Patient will return to prior living situation and remain independent in ADLs upon discharge from hospital Lifestyle On track( 023 11:22 AM CDT) No Jazmyne Albarran RN [...] patient status and progress towards the goal. Medical Devices Implanted Type Area Hand Bulldozer Device Identifier Shelf Expiration Date Model / Serial / Lot Wire Sternotomy Suture Kit - [id number] Implanted:Qty: 1 on 08/31/2022 by Henry Welsh MD at [facility] Wire N/A: Sternum [employer] 02/07/2027 [id number] / / [id number] Description:5 wires implante d Wire Sterum Suture Kit [employer] #7 1/2 Ccs-1 - [id number] Implanted:Qty: 1 on 08/31/2022 by Henry Welsh MD at [facility] Wire N/A: Sternum A&E 5o9 02/07/2027 [id number] / / [id number] Description:2 wires implante d Procedures Procedure Name Priority Date/Time Associated Diagnosis Comments COLLECTION VENOUS BLOOD VENIPUNCTURE Routine 01/18/2025 9:06 AM CDT Primary hypertension CBC W/DIFF AUTOMATED Routine 01/18/2025 9:06 AM CDT Insulin dependent type 2 diabetes mellitus ([facility] HHS/HCC) Primary hypertension COMPREHENSIVE METABOLIC PANEL Routine 01/18/2025 9:06 AM CDT Insulin dependent type 2 diabetes mellitus ([facility] HHS/HCC) Primary hypertension LIPID PANEL Routine 01/18/2025 9:06 AM CDT Hyperlipidemia, mixed TSH W/REFLEX Routine 01/18/2025 9:06 AM CDT Primary hypertension PROSTATE SPECIFIC ANTIGEN,SCREENING Routine 01/18/2025 9:06 AM CDT Screening for prostate cancer ALBUMIN URINE RANDOM W/CREATININE Routine 01/10/2025 8:48 AM CDT Insulin dependent type 2 diabetes mellitus ([facility] HHS/HCC) COLLECT.CAPILLARY (FNGR,HEEL,EAR) Routine 01/10/2025 8:15 AM CDT Insulin dependent type 2 diabetes mellitus (CMS/HCC HHS/HCC) HEMOGLOBIN, GLYCOSYLATED Routine 01/10/2025 Insulin dependent type 2 diabetes mellitus (CMS/HCC HHS/HCC) CTA ABD+PEL Routine 10/10/2024 9:02 AM CDT PVD (peripheral vascular disease) Atherosclerosis of aorta DIABETIC RETINOPATHY EXAM (POSITIVE)(SCAN ORDER) Routine 04/21/2024 HEPATITIS C ANTIBODY Routine 02/22/2024 7:19 AM CDT Need for hepatitis C screening test from Last 3 Months or Most Recently Relevant to Health Maintenance Results * TSH W/REFLEX (01/18/2025 9:06 AM CDT) TSH 1.371 0.358 - 3.740 uIU/ML 01/18/2025 3:19 PM CDT [facility] 01/18/2025 9:06 AM CDT Kamillafabian Burch TECHNOLOGY EDUCATION TEACHER LABORATORY Final Res ult [address] [address], * PROSTATE SPECIFIC ANTIGEN,SCREENING (01/18/2025 9:06 AM CDT) PSA 0.40 <4.00 NG/ML 01/18/2025 3:19 PM CDT [facility] Comment: ASSAY PERFORMED BY ENZYME IMMUNOASSAY METHODOLOGY USING SIEMENS DIMENSION REAGENT. PATIENT RESULTS DETERMINED BY ASSAYS FROM DIFFERENT MANUFACTURERS AND/OR BY DIFFERENT METHODS MAY NOT BE COMPARABLE. 01/18/2025 9:06 AM CDT Kamillafabian Burch TECHNOLOGY EDUCATION TEACHER LABORATORY Final Res ult [address] [address], * (ABNORMAL) COMPREHENSIVE METABOLIC PANEL (01/18/2025 9:06 AM CDT) [facility] SODIUM S/P/B 142 136 - 145 MMOL/L 01/18/2025 3:19 PM CDT [facility] POTASSIUM S/P/B 4.6 3.5 - 5.1 MMOL/L 01/18/2025 3:19 PM CDT [facility] CHLORIDE S/P/B 105 98 - 107 MMOL/L 01/18/2025 3:19 PM CDT [facility] CO2 29.7 21 - 32 MMOL/L 01/18/2025 3:19 PM CDT [facility] GLUCOSE 145(H) 70 - 99 MG/DL 01/18/2025 3:19 PM CDT [facility] BUN 15 7 - 18 MG/DL 01/18/2025 3:19 PM CDT [facility] CREATININE S/P/B 1.28 0.70 - 1.30 MG/DL 01/18/2025 3:19 PM CDT [facility] CALCIUM S/P/B 9.0 8.4 - 10.5 MG/DL 01/18/2025 3:19 PM CDT -[facility] BILIRUBIN TOTAL S/P/B 0.3 0.2 - 1.0 MG/DL 01/18/2025 3:19 PM CDT [facility] ALKALINE PHOSPHATASE S/P/B 67 45 - 115 U/L 01/18/2025 3:19 PM CDT [facility] AST 37 15 - 37 U/L 01/18/2025 3:19 PM CDT [facility] ALT 47 16 - 63 U/L 01/18/2025 3:19 PM CDT [facility] TOTAL PROTEIN S/P/B 6.9 6.4 - 8.2 G/DL 01/18/2025 3:19 PM CDT [facility] ALBUMIN S/P/B 3.9 3.4 - 5.0 G/DL 01/18/2025 3:19 PM CDT [facility] [place] ANION GAP 7.3 5 - 15 MMOL/L 01/18/2025 3:19 PM CDT [facility] Comment:REFERENCE RANGE NOT ESTABLISHED OSMOLALITY (CALC) 297 MOSM/KG 025 3:19 PM CDT [facility] Comment:REFERENCE RANGE NOT ESTABLISHED GFR ESTIMATE 61(L) >90 ML/MIN/1. 73 M2 01/18/2025 3:19 PM T [facility] GFR NOTES GFR REFERENCE S: 01/18/2025 3:19 PM T [facility] Comment: THE ESTIMATED GFR IS CALCULATED USING THE 2020 CKD-EPI EQUATION. THE FOLLOWING CATEGORIES FOR GRADING RENAL FUNCTION ARE RECOMMENDED BY THE INTERNATIONAL SOCIETY OF NEPHROLOGY (KDIGO 2012 CLINICAL PRACTICE GUIDELINE). G1,NORMAL OR HIGH: >89 ml/min/1.73 m2 G2,MILDLY DECREASED: 60-89 ml/min/1.73 m2 G3A,MILDLY TO MODERATELY DECREASED: 45-59 ml/min/1.73 m2 G3B,MODERATELY TO SEVERELY DECREASED: 30-44 ml/min/1.73 m2 G4,SEVERELY DECREASED: 15-29 ml/min/1.73 m2 G5,KIDNEY FAILURE: <15 ml/min/1.73 m2 01/18/2025 9:06 AM CDT us Kamilla Burch NP LABORATORY Final Res ult [facility] [place] [address] [place] [address], * (ABNORMAL) LIPID PANEL (01/18/2025 9:06 AM CDT) CHOLESTEROL 103 <200 MG/DL 01/18/2025 3:19 PM CDT [facility] TRIGLYCERIDES 66 <150 MG/DL 01/18/2025 3:19 PM CDT [facility] HDL 31(L) >40 MG/DL 01/18/2025 3:19 PM CDT [facility] LDL-C 59 <100 MG/DL 01/18/2025 3:19 PM CDT [facility] VLDL CALCULATION 13 5 - 28 MG/DL 01/18/2025 3:19 PM CDT [facility] CHOL/HDL RATIO 3.3 0.0 - 4.0 01/18/2025 3:19 PM CDT [facility] LDL/HDL 1.9 0.41 - 2.13 01/18/2025 3:19 PM CDT [facility] NON HDL CHOLESTEROL 72 <140 MG/DL 01/18/2025 3:19 PM CDT [facility] 01/18/2025 9:06 AM CDT us Kamilla Burch TECHNOLOGY EDUCATION TEACHER LABORATORY Final Res ult [facility] [address] [place] [address], [place] [phone] * (ABNORMAL) CBC W/DIFF AUTOMATED (01/18/2025 9:06 AM CDT) WBC 5.28 4.00 - 10.80 x10'3/uL 01/18/2025 2:31 PM CDT [facility] RBC 5.25 4.50 - 6.10 x10'6/uL 01/18/2025 2:31 PM CDT [facility] HGB 15.6 13.0 - 18.0 G/DL 01/18/2025 2:31 PM CDT [facility] HCT 47.9 37.0 - 52.0 % 01/18/2025 2:31 PM CDT [facility] MCV 91.2 78.0 - 100.0 FL 01/18/2025 2:31 PM CDT -[facility] MCH 29.7 27.0 - 31.0 PG 01/18/2025 2:31 PM CDT [facility] MCHC 32.6(L) 33.0 - 36.0 G/DL 01/18/2025 2:31 PM CDT [facility] RDW 13.1 11.5 - 14.5 % 01/18/2025 2:31 PM CDT [facility] PLT 225 150 - 350 x10'3/uL 01/18/2025 2:31 PM CDT [facility] MPV 9.7 7.4 - 10.4 FL 01/18/2025 2:31 PM CDT [facility] DIFFERENTIAL TYPE AUTOMATED DIFFERENTIAL 01/18/2025 2:31 PM CDT [facility] NEUTROPHILS % 53.1 % 01/18/2025 2:31 PM CDT [facility] LYMPHOCYTES % 29.7 % 01/18/2025 2:31 PM CDT [facility] MONOCYTES % 13.8 % 01/18/2025 2:31 PM CDT [facility] EOSINOPHILS % 2.8 % 01/18/2025 2:31 PM CDT [facility] BASOPHILS % 0.4 % 01/18/2025 2:31 PM CDT [facility] IMMATURE GRANS % 0.2 % 01/18/2025 2:31 PM CDT [facility] ABS. NEUTROPHILS 2.80 1.60 - 8.30 x10'3/uL 01/18/2025 2:31 PM CDT [facility] ABS. LYMPHOCYTES 1.57 0.80 - 4.70 x10'3/uL 01/18/2025 2:31 PM CDT [facility] ABS. MONOCYTES 0.73 0.00 - 1.50 x10'3/uL 01/18/2025 2:31 PM CDT [facility] ABS. EOSINOPHILS 0.15 0.00 - 0.40 x10'3/uL 01/18/2025 2:31 PM CDT [facility] ABS. BASOPHILS 0.02 0.00 - 0.20 x10'3/uL 01/18/2025 2:31 PM CDT [facility] ABS. IMMATURE GRANULOCYTES 0.01 0.00 - 0.03 x10'3/uL 01/18/2025 2:31 PM CDT [facility] 01/18/2025 9:06 AM CDT Kamilla Burch TECHNOLOGY EDUCATION TEACHER LABORATORY Final Res ult Performing Organization Address [facility]/ZIP Co de Phone Number [facility] [address] [place] [address], [place] [phone] * ALBUMIN/CREATININE RATIO, RANDOM URINE (01/10/2025 8:48 AM CDT) MICROALBUMIN (U) 10.3 <20 MG/L 01/11/20 25 3:34 PM CDT [facility] CREATININE RANDOM (U) 160.2 MG/DL 01/10/2025 3:34 PM CDT [facility] ALBUMIN/CREAT RATIO 6.4 <30 MG/G 01/10/2025 3:34 PM CDT [facility] URINE SPECIMEN / Unknown 01/10/2025 8:48 AM CDT us Kamilla Burch TECHNOLOGY EDUCATION TEACHER URINE ORDERABLES Final Re sult Performing Organization Address [facility]/ZIP Co de Phone Number [facility] [address] [place] [address], [place] [phone] * A1C (BACK OFFICE) (01/10/2025) HGB A1C 7.4 % [address] [place] 01/10/2025 us Kamilla Burch TECHNOLOGY EDUCATION TEACHER LABORATORY Final Res ult [address] [place] [address] [facility] [address] [place] [address], * CTA ABD+PEL (10/10/2024 9:02 AM CDT) Anatomical Region Laterality Modality Abdomen, Pelvis Computed Tomogra phy 10/15/2024 12:4 7 PM CDT Impressions 10/15/2024 1:08 PM CDT IMPRESSION: 1. CT angiography abdomen pelvis demonstrates an anterior saccular infrarenal abdominal aortic aneurysm measuring up to 3.6 cm. The anterior abdominal aortic aneurysm sac is thrombosed. The bilateral common, internal and external iliac arteries are patent without high-grade stenosis or occlusion. 2. No acute abnormality is seen within the abdomen or pelvis. 3. There is a hooklike configuration of the celiac artery with post stenotic dilation, which can be seen with median arcuate ligament compression. 4. Enlarged bilateral inguinal lymph nodes measuring up to 10 mm short axis, likely reactive. Clinical follow-up is recommended. Referred By: GHANSHYAM HEARN Interpreted By: Cale Saenz MD, 10/15/2024 12:47 PM Narrative 10/15/2024 1:08 PM CDT [facility] [address] [place], [place] [address] PROCEDURE:CTA ABD+PEL HISTORY: Lower extremity claudication. Evaluate for large vessel occlusion. TECHNIQUE: Helical CT scans of the abdomen and pelvis were obtained before and following the administration of non-ionic iodinated intravenous contrast. The post contrast sequence(s) was(were) obtained using an angiography protocol (Isovue-370, 80 cc). Routine transaxial and post-processed (sagittal and coronal MPR) reformations of the acquired data sets were obtained. Standard 3-D (MIP) reformations of the acquired data sets were also obtained. A dose lowering technique was used for this procedure, which may include, but is not limited to, dose reduction technique, automated exposure control, the use of iterative reconstruction, and ALARA (As Low As Reasonably Achievable) / Image Gently techniques. COMPARISON: None. FINDINGS CT ANGIOGRAPHY/PELVIS ABDOMEN: Pre-contrast abdomen/pelvis: Precontrast images show no intimal calcific displacement. Post-contrast abdomen/pelvis: Vasculature: Aorta: There is an anterior saccular infrarenal abdominal aortic aneurysm measuring 3.6 cm. The aneurysm sac is thrombosed.. 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 The distal celiac artery branches are patent. Superior mesenteric artery: Patent without high-grade stenosis or occlusion. Inferior mesenteric artery: Patent without high-grade stenosis or occlusion. Renal arteries: Bilateral renal arteries are patent without high-grade stenosis or occlusion. The right accessory renal artery is patent. Iliac arteries: The bilateral common, internal and external iliac arteries are patent without high-grade stenosis or occlusion. The visualized femoral arteries also patent without high-grade stenosis or occlusion. Lower thorax: There is subsegmental atelectasis in the lower lobes. The heart is mildly enlarged. Liver: The liver is normal in size. There is no intrahepatic mass. Biliary tree: The gallbladder is present. There is no biliary ductal dilatation. Spleen: The spleen is normal in size. Pancreas: The pancreas is normal in size and enhances homogenously. Adrenal glands: The adrenal glands are normal in size and shape. Kidneys: There are bilateral symmetric nephrograms without hydronephrosis. Lymph nodes: Abdomen: There is no abdominal adenopathy. Pelvis: Prominent to large bilateral inguinal lymph nodes measuring up to 10 mm short axis, right greater than left, likely reactive. Peritoneum/mesentery/omentum: There is no free fluid or free air. GI tract: There is no bowel obstruction. The appendix is normal. There is a moderate fecal burden within the colon. There is no abnormal bowel wall thickening to suggest acute inflammation. Scattered colonic diverticulosis without evidence of acute inflammation. Pelvic urogenital structures:The bladder is grossly unremarkable. The prostate is present. Body wall: There are degenerative changes in the spine. Moderate bilateral hip degenerative changes. No aggressive osseous lesions are identified. Benign appearing lesion within the proximal left femur, likely a bone island Jacobs: (S/I) = series number / image number Procedure Note Cale Saenz MD - 10/15/[address] [address] PROCEDURE:CTA ABD+PEL HISTORY: Lower extremity claudication. Evaluate for large vesselocclusion. TECHNIQUE: Helical CT scans of the abdomen and pelvis were obtainedbefore and following the administration of non-ionic iodinated intravenouscontrast. The post contrast sequence(s) was(were) obtained using anangiography protocol (Isovue- 370, 80 cc). Routine transaxial andpost-processed (sagittal and coronal MPR) reformations of the acquireddata sets were obtained. Standard 3-D (MIP) reformations of the acquireddata sets were also obtained. A dose lowering technique was used for this procedure, which may include,but is not limited to, dose reduction technique, automated exposurecontrol, the use of iterative reconstruction, and ALARA (As Low AsReasonably Achievable) / Image Gently techniques. COMPARISON: None. FINDINGS CT ANGIOGRAPHY/PELVIS ABDOMEN: Pre-contrast abdomen/pelvis: Precontrast images show no intimal calcificdisplacement. Post-contrast abdomen/pelvis: Vasculature: Aorta: There is an anterior saccular infrarenal abdominal aortic aneurysmmeasuring 3.6 cm. The aneurysm sac is thrombosed.. 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 Superior mesenteric artery: Patent without high-grade stenosis orocclusion. Inferior mesenteric artery: Patent without high-grade stenosis orocclusion. Renal arteries: Bilateral renal arteries are patent without high-gradestenosis or occlusion. The right accessory renal artery is patent. Iliac arteries: The bilateral common, internal and external iliac arteriesare patent without high-grade stenosis or occlusion. The visualizedfemoral arteries also patent without high-grade stenosis or occlusion. Lower thorax: There is subsegmental atelectasis in the lower lobes. Theheart is mildly enlarged. Liver: The liver is normal in size. There is no intrahepatic mass. Biliary tree: The gallbladder is present. There is no biliary ductaldilatation. Spleen: The spleen is normal in size. Pancreas: The pancreas is normal in size and enhances homogenously. Adrenal glands: The adrenal glands are normal in size and shape. Kidneys: There are bilateral symmetric nephrograms withouthydronephrosis. Lymph nodes: Abdomen: There is no abdominal adenopathy. Pelvis: Prominent to large bilateral inguinal lymph nodes measuring up to10 mm short axis, right greater than left, likely reactive. Peritoneum/mesentery/omentum: There is no free fluid or free air. GI tract: There is no bowel obstruction. The appendix is normal. Thereis a moderate fecal burden within the colon. There is no abnormal bowelwall thickening to suggest acute inflammation. Scattered colonicdiverticulosis without evidence of acute inflammation. Pelvic urogenital structures:The bladder is grossly unremarkable. Theprostate is present. Body wall: There are degenerative changes in the spine. Moderatebilateral hip degenerative changes. No aggressive osseous lesions areidentified. Benign appearing lesion within the proximal left femur,likely a bone island Jacbos: (S/I) = series number / image number IMPRESSION: 1. CT angiography abdomen pelvis demonstrates an anterior saccularinfrarenal abdominal aortic aneurysm measuring up to 3.6 cm. The anteriorabdominal aortic aneurysm sac is thrombosed. The bilateral common,internal and external iliac arteries are patent without high-gradestenosis or occlusion. 2. No acute abnormality is seen within the abdomen or pelvis. 3. There is a hooklike configuration of the celiac artery with poststenotic dilation, which can be seen with median arcuate ligamentcompression. 4. Enlarged bilateral inguinal lymph nodes measuring up to 10 mm shortaxis, likely reactive. Clinical follow-up is recommended. Referred By: GHANSHYAM HEARN Interpreted By: Cale Saenz MD, 10/15/2024 12:47 PM us Ghanshyam Hearn MD CT Final Result * DIABETIC RETINOPATHY EXAM (POSITIVE) (04/21/2024) [facility] Scanned SCANNING Final Resu lt [facility] * HEPATITIS C ANTIBODY ([facility] ONLY) (02/22/2024 7:19 AM CDT) HEPATITIS C AB NON-REACTI VE NON-REACT SUJATA 02/22/2024 7:01 PM CDT [facility] Comment: ANTIBODIES TO HCV NOT DETECTED. DOES NOT EXCLUDE THE POSSIBILITY OF EXPOSURE TO HCV. 02/22/2024 7:19 AM CDT us Kamilla Burch TECHNOLOGY EDUCATION TEACHER LABORATORY Final Res ult [facility] [address] [place] [address], [id number] from Last 3 Months or Most Recently Relevant to Health Maintenance Insurance [employer] Advance Directives Documents on File Type Date Recorded Patient Ham Boner Expl anation Advance Directives and Living Will 09/08/2022 10:01 AM 08/24/2022 [facility] * Full Code (Latest Code Status on File) Date Activated Date Inactivated Comments 08/31/2022 2:04 PM 09/05/2022 12:48 PM * Full Code Date Activated Date Inactivated Comments 08/20/2022 11:10 AM 08/20/2022 5:29 PM * Full Code Date Activated Date Inactivated Comments 08/19/2022 3:40 PM 08/20/2022 11:10 AM Care Teams Fine Sander Relationship Specialty Start Date End Date Kamilla Burch NP [address] [place] [address] PCP - General NURSE PRACTITIONER 12/06/19
--- OUTSIDE RECORDS SUMMARY | 2025-02-05 01:35 | XMS_ITS | Encounter Summary ---
Author Organization [facility] Address [facility] [place] [address] Care Team Providers Care Senior Manager [employer]erg[employer] Acquisitions Name Role Phone Kamilla Burch RRTS Primary Care Provider [phone] Encounter Details Date Type Department Care Team (Late st Contact Info) Description 01/27/2023 MyCVertigot Message Enc [facility] Family Medicine - [place] [address] [place] [address] Kamilla Burch, RRTS [address] [place] [address] Sleep study results Social History Tobacco Use Types Packs/Day Years [...] place to sleep or slept in a residential (including now)? No 08/31/2022 Sex and Gender [...] Date Author Status No 08/31/2022 5:14 PM CDT Luisa Ramachandran RN Active documented in this encounter Plan of Treatment Upcoming Encounters Date Type Department Care Team (Late st Contact Info) Description 04/13/2025 9:20 AM SPRUE KNOCKER Office Visit [facility] Family Medicine - [place] [address] [place] [address] Kamilla Burch NP [address] [place] [address] 04/20/2025 9:30 AM SPRUE KNOCKER Office Visit [facility], [address] [place] [address] Braden Mccauley MD Three [facility]. [address] [place] [address] 10/10/2025 9:00 AM CDT Appointment [facility]ascular Lab [address] [facility] [place] [address] Ghanshyam Rodriguez MD Three [facility]. [address] [place] [address] 10/17/2025 10:15 AM CDT Appointment [facility] [address] [facility] [address] Ghanshyam Rodriguez MD Three [facility]. [address] [place], [place] [id number] 10/25/2025 1:00 PM CDT Office Visit [facility] [address] [place], [place] [id number] [facility]hyam [facility] [address] [place], [place] [id number] documented as of this encounter Goals Goal [...] Rule Out 04/26/2024 04/26/2024 04/26/2024 9:15 AM SPRUE KNOCKER documented as of this encounter Care Teams Senior Manager [employer] Acquis[employer] Relationship Specialty Start Date End Date Kamilla Burch NP [address] [place] [address] PCP - General NURSE PRACTITIONER 12/06/19 documented as of this encounter
--- OUTSIDE RECORDS SUMMARY | 2025-02-05 01:35 | XMS_ITS | Encounter Summary ---
Author Organization [facility] Address [address] [place] [address] Care Team Providers Care Freight Forwarder Name Role Phone Kamilla Burch NP Primary Care Provider [phone] Ena Royal RN Unavailable [phone] Encounter Details Date Type Department Care Team (Late st Contact Info) Description 04/01/2022 jaeyos Message Enc [facility] Family Medicine [facility] [address] [facility] [address] [place], [place] [id number] Kamilla Burch NP [address] [place] [address] follow up Social History Tobacco Use Types Packs/Day Years [...] Coronavirus/COVID-19? No / Unsure 04/01/2022 9:54 AM UNDERWEAR WELTER documented as of this encounter Plan of Treatment Upcoming Encounters Date Type Department Care Team (Late st Contact Info) Description 04/13/2025 9:20 AM UNDERWEAR WELTER Office Visit [facility] Family Medicine - [place] [address] [place] [address] Kamilla Burch NP [address] [place] [address] 04/20/2025 9:30 AM UNDERWEAR WELTER Office Visit [facility] THREE [facility], [facility] [address] [place] [address] Braden Mccauley MD Three [facility]. [facility] [address] [place] [address] 10/10/2025 9:00 AM CDT Appointment [facility] [place] [address] Ghanshyam Rodriguez MD Three [facility]. [facility] [address] [place] [address] 10/17/2025 10:15 AM CDT Appointment [place] [address] Ghanshyam Rodriguez MD Three [facility]. [facility] [address] [place] [address] 10/25/2025 1:00 PM CDT Office Visit [facility] THREE [facility], [facility] [address] [place] [address] Ghanshyam Rodriguez MD Three [facility]. [address] [place] [address] documented as of this encounter Visit Diagnoses Not on filedocumented in this encounter Additional Health Concerns Infection Onset Date Last Indicated Resolved Time COVID-19 Rule Out 02/12/2023 02/12/2023 02/12/2023 8:08 AM CDT COVID-19 Rule Out 04/26/2024 04/26/2024 04/26/2024 9:15 AM UNDERWEAR WELTER documented as of this encounter Care Teams Freight Forwarder Relationship Specialty Start Date End Date Kamilla Burch NP [address] [place] [address] PCP - General NURSE PRACTITIONER 12/06/19 Ena Royal, RN [address] [place] [address] Human Resources Vice President (Ambulatory) REGISTERED NURSE 08/20/22 documented as of this encounter
--- OUTSIDE RECORDS SUMMARY | 2025-02-05 01:35 | XMS_ITS | Patient Health Record ---
Author Organization [facility] Address [address] [place] [address] Y GREG YATES [address] Care Team Providers Care Public Health Sanitarian Name Role Phone Marylu Morejon Unavailable [phone] Reason For Referral No Information Medications Medication SIG (Take, Route, Frequency, Duration) Notes Start Date End Date Status Xofluza 2 x 40 MG Tablet Therapy Pack as directed Orally Once a day; Duration: 1 days 05/22/2019 Active Social History Social History Drugs/Alcohol: Social Info Question Answer Notes Alcohol Use Do you drink alcohol? Yes Tobacco Use: Social Info Question Answer Notes Tobacco Use Do you smoke - Yes Plan Of Treatment No Information Insurance Providers Payer Name Payer Address Payer Phone Subscriber Number Group Number Insured Name Patient Relationship to Insured Coverage Start Date Coverage End Date [facility] [id number] [place] [address] [id number] NOMAN SIGALA Self - patient is the insured Medical (General) History Surgical History Surgery Date(Month/Year)
--- OUTSIDE RECORDS SUMMARY | 2025-02-05 01:35 | XMS_ITS | Clinical Summary ---
Author Organization [facility] [employer] Address [address] [place] [address] Care Team Providers Care Bellhop Service Captain Name Role Phone Unavailable Primary Care Provider Unavailabl e Source Comments [facility] [employer],non-owned Affiliates and Associated Physician Practices is amultiple site organization consisting of ambulatory clinics and hospital sitesin [place], [place] and [place]. This disclosure is being madepursuant to the Care Everywhere program and may not contain all information available regarding this patient. Last updated 18.[facility] [employer] Social History Tobacco Use Types Packs/Day Years Used Date Smoking Tobacco: Never Assessed Sex and Gender Information Value Date Recorded Sex Assigned at Not on file Legal Sex Male 4:15 PM CDT Gender Identity Not on file Sexual Orientation Not on file Plan of Treatment Health Maintenance Due Date Last Done Comments COLOGUARD (AGES 45-75) - COL ON CA SCREENING 1956 COLON MONITORING 1956 COLONOSCOPY - COLON CA SCREENING 1956 CT COLONOGRAPHY - COLON CA SCREENING 1956 Colorectal Cancer Screening 1956 FIT - COLON CA SCREENING 1956 FLEX SIG - COLON CA SCREENING 1956 LIPID TESTING 1956 HEPATITIS C SCREENING 04/21/1974 DTAP/TDAP/TD VACCINES (1 - Tdap) 1975 PNEUMOCOCCAL VACCINE 50+ (1 of 1 - PCV) 2006 ZOSTER VACCINE (1 of 2) 2006 DEPRESSION SCREENING 05/10/2024 MEDICARE AWV CALENDAR YEAR 2024 COVID-19 VACCINE (1 - 2023-2 5 season) 2025 INFLUENZA VACCINE (#1) 2025 Respiratory Syncytial Virus (RSV) Vaccine Pt: or over 60 yrs (1 - 1-dose 75+ series) 2031 HEPATITIS B VACCINE Aged Out No longe r eligible based on patient's age to complete this topic HIB VACCINE Aged Out No longer eligi ble based on patient's age to complete this topic HPV VACCINE Aged Out No longer eligi ble based on patient's age to complete this topic MENINGOCOCCAL (Group B) VACC INE SHARED DECISION-MAKING Aged Out No longer eligibl e based on patient's age to complete this topic MENINGOCOCCAL GROUPS A/C/Y/W VACCINE Aged Out No longer eligible b ased on patient's age to complete this topic Insurance AETNA MEDICARE ADV
--- OUTSIDE RECORDS SUMMARY | 2025-02-05 01:35 | XMS_ITS | Encounter Summary ---
Author Organization [facility] Address [address] [address] [place] [address] Care Team Providers Care Assistant Professor Of Dietetics Name Role Phone Kamilla Burch NP Primary Care Provider [phone] Ena Royal RN Unavailable [phone] Encounter Details Date Type Department Care Team (Late st Contact Info) Description 08/24/2022 Howcastt Message Enc [facility] Family [facility] [address] [facility] [place] [address] Kamilla Burch NP [address] [place] [address] Thanks for all you are doing for me! Social History Tobacco Use Types Packs/Day Years [...] place to sleep or slept in a group home (including now)? No 08/19/2022 Sex and Gender [...] st Contact Info) Description 04/13/2025 9:20 AM COMPLAINT ANALYST Office Visit [facility] Family Medicine - [place] [address] [facility] [address] [place] [address] Kamilla Burch NP [address] [place] [address] 04/20/2025 9:30 AM COMPLAINT ANALYST Office Visit [facility] THREE [facility], [address] [place], [place] [id number] Braden Mccauley MD [facility]. [address] [place], [place] [id number] 10/10/2025 9:00 AM CDT Appointment [facility] [address] [facility] [place] [address] Ghanshyam Rodriguez MD [facility] [address] [place] [address] 10/17/2025 10:15 AM CDT Appointment [facility] [address] [facility] [place] [address] Ghanshyam Rodriguez MD Three [facility]. [address] [place] [address] 10/25/2025 1:00 PM CDT Office Visit [facility] [address], [address] [place] [address] Ghanshyam Rodriguez MD Three [facility]. [address] [place] [address] documented as of this encounter Goals Goal Patient Goal Type Associated Problems Recent Progress Patient-Stated? Author Patient will return to prior living situation and remain independent in ADLs upon discharge from hospital Lifestyle On track( 023 11:22 AM CDT) No Jazmyne Albarran, RN Establish Plan for Symptom Monitoring Lifestyle On track( 023 11:22 AM CDT) No Ena Royal, DOUGIE Note: 08/21/22: Moving forward, please see body of note for patient status and progress towards the goal. documented as of this encounter Visit Diagnoses Not on filedocumented in this encounter Additional Health Concerns Infection Onset Date Last Indicated Resolved Time COVID-19 Rule Out 02/12/2023 02/12/2023 02/12/2023 8:08 AM CDT COVID-19 Rule Out 04/26/2024 04/26/2024 04/26/2024 9:15 AM COMPLAINT ANALYST documented as of this encounter Care Teams Assistant Professor Of Dietetics Relationship Specialty Start Date End Date Kamilla Burch NP [address] [place] [address] PCP - General NURSE PRACTITIONER 12/06/19 Ena Royal, RN [address] [place], [place] [address] Direct Support Professional Caregiver (Ambulatory) REGISTERED NURSE 08/20/22 documented as of this encounter
--- OUTSIDE RECORDS SUMMARY | 2025-02-05 01:36 | XMS_ITS | Encounter Summary ---
Author Organization [facility] Address [address] [place] [address] Care Team Providers Care Delivery Specialist Name Role Phone Kamilla Burch NP Primary Care Provider [phone] Ena Royal RN Unavailable [phone] Encounter Details Date Type Department Care Team (Late st Contact Info) Description 09/29/2022 [employer] Message Enc [facility] THREE [facility], [address] [place] [address] Henry Welsh MD [address] [facility] [address] [place] [address] Refill Rx Hydrocodone Acetamin 5-325 Social History Tobacco Use Types Packs/Day Years [...] place to sleep or slept in a assisted (including now)? No 08/31/2022 Sex and Gender [...] suspected to have Coronavirus/COVID-19? No / Unsure 09/17/2022 11:59 AM CDT documented as of this encounter [...] st Contact Info) Description 04/13/2025 9:20 AM PISTON MAKER Office Visit [facility] Family Medicine - [place] [address] [facility] [address] [place] [address] Kamilla Burch NP [address] [place] [address] 04/20/2025 9:30 AM PISTON MAKER Office Visit [facility] THREE [facility], [address] [place], [place] [id number] Braden Mccauley MD [facility]. [address] [place], [place] [address] 10/10/2025 9:00 AM CDT Appointment [facility] [address] [facility] [place] [address] Ghanshyam Rodriguez MD [facility] [address] [place], [place] [address] 10/17/2025 10:15 AM CDT Appointment [facility] [address] [facility] [place] [address] Ghanshyam Rodriguez MD [facility] [address] [place], [place] [address] 10/25/2025 1:00 PM CDT Office Visit [facility] [address] [facility] [address] [address] [address], [address] [place], [place] [address] Ghanshyam Rodriguez MD Three [facility]. [address] [place], [place] [address] documented as of this encounter Goals Goal [...] Rule Out 04/26/2024 04/26/2024 04/26/2024 9:15 AM PISTON MAKER documented as of this encounter Care Teams Delivery Specialist Relationship Specialty Start Date End Date Kamilla Burch NP [address] [place] [address] PCP - General NURSE PRACTITIONER 12/06/19 Ena Royal, RN [address] [place], [place] [address] Canceling And Cutting Control Clerk (Ambulatory) REGISTERED NURSE 08/20/22 documented as of this encounter
--- OUTSIDE RECORDS SUMMARY | 2025-02-05 01:36 | XMS_ITS | Encounter Summary ---
Author Organization [facility] Address [facility] [place] [address] Care Team Providers Care Administrative Nursing Supervisor Name Role Phone Kamilla Burch GARAGE DOOR INSTALLER Primary Care Provider [phone] Encounter Details Date Type Department Care Team (Late st Contact Info) Description 12/31/2023 OpenBookt Message Enc [facility] Family Medicine - [place] [address] [facility] [address] [place] [address] Kamilla Burch, GARAGE DOOR INSTALLER [address] [place] [address] New dose of 14 instead of 7 Of rebeltus Social History Tobacco Use Types Packs/Day Years Used Date Smoking Tobacco: Former Cigars Passive Smoke Exposure: Never Smokeless Tobacco: Never Comments:na Alcohol Use Standard Drinks/Week Comments Not Currently [...] Date Recorded Patient Health Questionnaire-2 Score 0 07/02/2023 Hunger Vital Sign Answer Date Recorded Within the past 12 months, y ou worried that your food would run out before you got the money to buy more. Never true 09/01/19 Within the past 12 months, t he [...] place to sleep or slept in a chcf (including now)? No 08/31/2022 Sex and Gender [...] Ramachandran RN Active documented in this encounter Progress Notes * Soraida Law MA - 01/03/2024 9:24 AM CDT I called and lmovm to call office * Kamilla Burch NP - 01/03/2024 5:57 AM CDT Can you check with pt was the lower dose cheaper? Also , I will have no idea the cost of any of theGLP-1 medications. He was on one of the injectables in the past but I think he had troubles getting. With his diabetes and having CAD would recommend staying on Rybelus or trying to get Ozempic. Let me know what he says. documented in this encounter Plan of Treatment Upcoming Encounters Date Type Department Care Team (Late st Contact Info) Description 04/13/2025 9:20 AM REMOTE SENSING ENGINEER Office Visit [facility] Family Medicine - [place] [address] [address] Kamilla Burch, GARAGE DOOR INSTALLER [address] [place] [address] 04/20/2025 9:30 AM REMOTE SENSING ENGINEER Office Visit [facility] THREE [facility], [address] [place] [address] Braden Mccauley MD Three [facility]. [address] [place] [address] 10/10/2025 9:00 AM CDT Appointment [facility] ONE [facility] [place] [address] Ghanshyam Rodriguez MD Three [facility]. [facility] [address] [place] [address] 10/17/2025 10:15 AM CDT Appointment [facility] [address] [facility] [place] [address] Ghanshyam Rodriguez MD Three [facility]. [facility] [address] [place], [place] [address] 10/25/2025 1:00 PM CDT Office Visit [facility] THREE [facility], [address] [place] [address] Ghanshyam Rodriguez MD Three [facility]. [facility] [address] [place], [place] [address] documented as of this encounter Goals Goal Patient Goal Type Associated Problems Recent Progress Patient-Stated? Author Patient will return to prior living situation and remain independent in ADLs upon discharge from hospital Lifestyle On track( 023 11:22 AM CDT) Jazmyne Amezcua, RN Establish Plan for Symptom Monitoring Lifestyle [...] Rule Out 04/26/2024 04/26/2024 04/26/2024 9:15 AM REMOTE SENSING ENGINEER documented as of this encounter Care Teams Administrative Nursing Supervisor Relationship Specialty Start Date End Date Kamilla Burch NP [address] [place] [address] PCP - General NURSE PRACTITIONER 12/06/19 documented as of this encounter
--- OUTSIDE RECORDS SUMMARY | 2025-02-05 01:36 | XMS_ITS | Encounter Summary ---
Author Organization [facility] Address [facility] [place] [address] Care Team Providers Care Consulting Systems Engineer Name Role Phone Kamilla Burch SERVICE WRITER Primary Care Provider [phone] Encounter Details Date Type Department Care Team (Late st Contact Info) Description 01/10/2025 Results Follow-Up [facility] Family Medicine - [place] [address] [facility] [address] [place] [address] Kamilla Burch, SERVICE WRITER [address] [place] [address] [place] [address] A1C (BACK OFFICE), ALBUMIN/CREATININE RATIO, RANDOM URINE, PROSTATE SPECIFIC ANTIGEN,SCREENING, Additional followed-up results: 4 Social History Tobacco Use Types Packs/Day Years Used Date Smoking Tobacco: Former Cigars Passive Smoke Exposure: Never Smokeless Tobacco: Never Comments:Quit 2022 Alcohol Use Standard Drinks/Week Comments [...] place to sleep or slept in a longterm (including now)? No 08/31/2022 Sex and Gender [...] No 08/31/2022 5:14 PM CDT Luisa Ramachandran , RN Active * Are you blind or [...] st Contact Info) Description 04/13/2025 9:20 AM TRAINING AND DEVELOPMENT PROJECT LEADER Office Visit [facility] Family Medicine - [place] [address] [facility] [address] [place] [address] Kamilla Burch NP [address] [place] [address] [place] [address] 04/20/2025 9:30 AM TRAINING AND DEVELOPMENT PROJECT LEADER Office Visit [facility] THREE [facility], [address] [place] [address] Braden Mccauley MD Three [facility]. [address] [place] [address] 10/10/2025 9:00 AM CDT Appointment [facility] [address] [facility] [place] [address] Ghanshyam Rodriguez MD [address] [place], [place] [address] 10/17/2025 10:15 AM CDT Appointment [facility] [address] [place] [address] Ghanshyam Rodriguez MD [address] [place] [address] 10/25/2025 1:00 PM CDT Office Visit [facility] [address], [address] [place] [address] Ghanshyam Rodriguez MD [address] [place], [place] [address] documented as of this encounter Goals Goal [...] AM CDT) No Ena Royal, DOUGIE Note: 09/07/22: PCP appt on 09/14/22 and cardiology appt on 10/01/22 and patient is aware of these appts. Moving forward, please see body of note for patient status and progress towards the goal. documented as of this encounter Visit Diagnoses Not on filedocumented in this encounter Care Teams Consulting Systems Engineer Relationship Specialty Start Date End Date Kamilla Burch NP [address] [place] [address] [place] [address] PCP - General NURSE PRACTITIONER 12/06/19 documented as of this encounter
--- OUTSIDE RECORDS SUMMARY | 2025-02-05 01:36 | XMS_ITS | Encounter Summary ---
Author Organization [facility] Address [facility] [place] [address] Care Team Providers Care Sourcing Manager Name Role Phone Kamilla Burch NURSE PRACTITIONER ADULT Primary Care Provider [phone] Encounter Details Date Type Department Care Team (Late st Contact Info) Description 11/20/2022 Ambrxt Message Enc [facility] Family Medicine - [place] [address] [facility] [address] [place] [address] Kamilla Burch, NURSE PRACTITIONER ADULT [address] [place] [address] Question regarding PATHOLOGY GENERIC Social History Tobacco Use Types Packs/Day Years [...] to sleep or slept in a senior living (including now)? No 08/31/2022 Sex and Gender [...] suspected to have Coronavirus/COVID-19? No / Unsure 10/22/2022 8:31 AM CDT documented as of this encounter [...] st Contact Info) Description 04/13/2025 9:20 AM CHILD CARE COUNSELOR Office Visit [facility] Family Medicine [facility] [address] [facility] [address] [place] [address] Kamilla Burch NP [address] [place] [address] 04/20/2025 9:30 AM CHILD CARE COUNSELOR Office Visit [facility] THREE [facility], [address] [place], [place] [address] Braden Mccauley MD Three [facility]. [address] [place] [address] 10/10/2025 9:00 AM CDT Appointment [facility] [address] [facility] [address] Ghanshyam Rodriguez MD [address] [facility] [address] [place] [address] 10/17/2025 10:15 AM CDT Appointment [facility] [address] [facility] [place] [address] Ghanshyam Rodriguez MD Three [facility]. [address] [place], [place] [address] 10/25/2025 1:00 PM CDT Office Visit [facility] THREE [facility], [address] [place], [place] [id number] Ghanshyam Rodriguez MD Three [facility]. [address] [place], [place] [address] documented as of this encounter Goals Goal [...] AM CDT) No Ena Royal, RN Note: 09/07/22: PCP appt on 09/14/22 [...] Rule Out 04/26/2024 04/26/2024 04/26/2024 9:15 AM CHILD CARE COUNSELOR documented as of this encounter Care Teams Sourcing Manager Relationship Specialty Start Date End Date Kamilla Burch NP [address] [place] [address] PCP - General NURSE PRACTITIONER 12/06/19 documented as of this encounter
[2025-02-05 08:46] VITALS: BP 141/89; PULSE 87; RESP 16; TEMP 36.4; O2SAT 97; BMI 34.3
[2025-02-05] MEDS: LACTATED RINGERS 1,000 ML 150 ML IV CONT (08:57)
--- NOTE | 2025-02-05 09:08 | WPDANESEPPF ---
Anes - Initial Pre Proc Eval Procedure: Operation Date: 02/05/25 10:00 Proposed Procedures p Screening Colonoscopy - Deion Marques MD Date/Time: 02/05/25 09:08 Surgeon: Deion Marques MD Pre Op Diagnosis: Encounter for screening for malignant neoplasm of Patient Data Age: 69 Gender: M Height: 1.91 m Weight: 124.7 kg Last Vital Signs Temp 97.5 F L 02/05/25 08:46 Pulse 87 02/05/25 08:46 Resp 16 02/05/25 08:46 BP 141/89 H 02/05/25 08:46 Pulse Ox 97 02/05/25 08:46 O2 Del Method Room Air 02/05/25 08:46 Allergies Allergy/AdvReac Type Severity Reaction Status Date / Time No Known Allergies Allergy Verified 02/05/25 08:45 Home Medications ?Medication ?Instructions ?Recorded ?Confirmed ?Type aspirin 81 mg capsule 81 mg PO DAILY 02/01/25 02/05/25 History ezetimibe 10 mg tablet 10 mg PO DAILY 02/01/25 02/05/25 History insulin aspart U-100 100 unit/mL 12 unit subcut .4 times a day 02/01/25 02/05/25 History (3 mL) subcutaneous pen (Novolog FlexPen U-100 Insulin aspart) insulin glargine 100 unit/mL (3 25 unit subcut BID 02/01/25 02/05/25 History mL) subcutaneous pen (Basaglar KwikPen U-100 Insulin) lisinopril 10 mg tablet 10 mg PO DAILY 02/01/25 02/05/25 History metoprolol succinate 100 mg 50 mg PO DAILY 02/01/25 02/05/25 History tablet,extended release 24 hr rosuvastatin 40 mg tablet 40 mg PO DAILY 02/01/25 02/05/25 History Laboratory Tests 02/05/25 08:50 POC Capillary Glucose 128 H mg/dl (65-105) Patient hx anesthesia problems: none Family hx anesthesia problems: none Results Review: All pre-operative results and documents have been reviewed as part of the pre-operative evaluation. [facility] Social History Social History Smoking status: Former smoker Tobacco type: cigarettes and cigars Alcohol intake: current Drinks per week: 7 Substance use type: does not use Living arrangements: with family Spiritual care concerns: No Anes - Eval Final PreProcedure Day of Procedure 02/05/25 09:08 Patient weight: obese Lungs: normal air movement Airway: Mallampati scale class II Neurological: alert and oriented Last oral intake: >/= 8 hours ASA classification: III Emergent: no Anesthetic plan: proceed Anesthesia type and monitoring: general GIVS and standard monitoring Results Review: All pre-operative results and documents have been reviewed as part of the pre-operative evaluation. HTN, hyperlipidemia, DM fsbs 128, JUANY on CPAP, hx of CABG 2022, active w walking the driveway, no cp or sob. Informed Consent: The patient's anesthetic plan and its attendant risks and benefits were discussed with the patient/family/POA. Questions were solicited and answers provided to the satisfaction of the patient/family/POA.
--- NOTE | 2025-02-05 09:20 | PM.IMHP ---
H&P: HPI History of Present Illness Date/Time: 02/05/25 09:20 Chief Complaint: History of colon polyps Narrative: The patient has a history of colonic polyps, the last colonoscopy was 5 years ago. Review of Systems Review of Systems: All systems reviewed & are unremarkable except as noted in HPI and below [facility] Social History Social History Smoking status: Former smoker Tobacco type: cigarettes and cigars Alcohol intake: current Drinks per week: 7 Substance use type: does not use Living arrangements: with family Spiritual care concerns: No Meds Home Medications and Allergies Home Medications ?Medication ?Instructions ?Recorded ?Confirmed ?Type aspirin 81 mg capsule 81 mg PO DAILY 02/01/25 02/05/25 History ezetimibe 10 mg tablet 10 mg PO DAILY 02/01/25 02/05/25 History insulin aspart U-100 100 unit/mL 12 unit subcut .4 times a day 02/01/25 02/05/25 History (3 mL) subcutaneous pen (Novolog FlexPen U-100 Insulin aspart) insulin glargine 100 unit/mL (3 25 unit subcut BID 02/01/25 02/05/25 History mL) subcutaneous pen (Basaglar KwikPen U-100 Insulin) lisinopril 10 mg tablet 10 mg PO DAILY 02/01/25 02/05/25 History metoprolol succinate 100 mg 50 mg PO DAILY 02/01/25 02/05/25 History tablet,extended release 24 hr rosuvastatin 40 mg tablet 40 mg PO DAILY 02/01/25 02/05/25 History Allergies Allergy/AdvReac Type Severity Reaction Status Date / Time No Known Allergies Allergy Verified 02/05/25 08:45 Vital Signs Vital Signs - 24 hr 02/05/25 08:46 Temperature 97.5 F L Pulse Rate 87 Respiratory Rate 16 Blood Pressure 141/89 H Pulse Oximetry 97 Oxygen Delivery Room Air Exam Const: General: cooperative and healthy appearing Resp: Effort & Inspection: normal respiratory effort and able to speak in complete sentences Auscultation: clear to auscultation bilaterally Cardio: Rate: regular rate Rhythm: regular rhythm GI: Inspection: normal to inspection GI Palp: No No hepatosplenomegaly present Auscultation: normal bowel sounds Rectal Exam: deferred Skin: General skin exam: normal color Psych: Appearance: grossly normal Mental Status: mental status grossly normal Assessment and Plan Assessment and plan (1) History of colonic polyps: Code(s): Z86.0100 - Personal history of colon polyps, unspecified Status: Acute Assessment and Plan: The patient is deemed a good candidate for the procedure. Consent signed. Will proceed.
--- NOTE | 2025-02-05 10:09 | S_PTH ---
PATIENT: Josr Butler LOC: [facility]#:[id number] AGE/SX: 69/M ROOM: RE02/05/[address]: Deion Marques MD : [id number] BED: DIS: 02/05/2025 SPEC #: [id number] RECD: 02/05/25 11:02 STATUS: ALLEN REGill #: [id number] MARIELA: 02/05/25 10:[address]: Deion Marques DEPT: [facility] Surgical RECD BY: Nadeen Dawson ENTERED: 02/05/25 11:03 SP TYPE: Surgical OTHR DR: Kamilla Burch, [employer] Tissues: A - Colon Polypectomy B - Colon Polypectomy Procedures: Hematoxylin and Eosin Stain Gross and Microscopic Level 4
[2025-02-05 10:16] VITALS: BP 120/73; PULSE 88; RESP 21; O2SAT 96
[2025-02-05 10:26] VITALS: BP 121/78; PULSE 80; RESP 24; O2SAT 96
[2025-02-05 10:36] VITALS: BP 122/73; PULSE 92; RESP 21; O2SAT 97
--- NOTE | 2025-02-05 10:36 | SUR.PHASEII ---
Glucose reading 112 in recovery per dexcom.
== END 2025-02-05 10:43 | disposition home or self-care (01) ==
PROVIDERS: PCP Nurse Practitioner; Referring Provider Nurse Practitioner; Visit Provider Internal Medicine Gastroenterology
PROC: 0DJD8ZZ Inspection of Lower Intestinal Tract, Via Natural or Artificial Opening Endoscopic (ICD-10-PCS; CPT 45378; principal; 2025-02-05 10:00)
DX: Z12.11 Encounter for screening for malignant neoplasm of colon (principal); D12.3 Benign neoplasm of transverse colon; D12.5 Benign neoplasm of sigmoid colon; K57.30 Diverticulosis of large intestine without perforation or abscess without bleeding; I10 Essential (primary) hypertension; E78.5 Hyperlipidemia, unspecified; E11.9 Type 2 diabetes mellitus without complications; G47.33 Obstructive sleep apnea (adult) (pediatric); E66.9 Obesity, unspecified; Z68.34 Body mass index [BMI] 34.0-34.9, adult; Z79.82 Long term (current) use of aspirin; Z79.4 Long term (current) use of insulin; Z99.89 Dependence on other enabling machines and devices; Z95.1 Presence of aortocoronary bypass graft; Z87.891 Personal history of nicotine dependence
CPT/HCPCS: 45385; 82948; 88305; J2003; J2704; J7120